=== PATIENT | female | born 1955 | race American Indian/Alaskan Native ===

== ENCOUNTER 2017-09-12 13:37 | Emergency (ER) | payer MEDICAID, OTHER ==
[2017-09-12] MEDS ORDERED: Albuterol/Ipratropium 3.0-0.5 MG/3 ML Neb Soln NEB ONE (13:49)
[2017-09-12] MEDS ORDERED: methylPREDNISolone Sodium Succinate 125 MG/2 ML SDV IVPUSH ONE (13:54)
--- NOTE | 2017-09-12 13:56 | EDM.PDOC ---
ED HPI GENERAL MEDICAL PROBLEM - General Chief Complaint: Respiratory Problem Stated Complaint: [id number] PNEMONIA Time Seen by Provider: 09/12/17 13:50 Source of Information: Reports: Patient History Limitations: Reports: No Limitations - History of Present Illness INITIAL COMMENTS - FREE TEXT/NARRATIVE: 61 yo white female c/o SOB X one week w/ PMHx. A-fib., COPD and continue to smoke cigarettes @ 2 ppd. Denies using oxygen since offered to her one year ago Onset Date: 09/05/17 Onset Time: 12:00 Duration: Week(s):, Getting Worse Location: Reports: Chest, Generalized Improves with: Reports: None Worsens with: Reports: None Context: Reports: Other (PMHx. COPD refused Home Oxygen and Continue to Smoke 2ppd) Associated Symptoms: Reports: Cough, Shortness of Breath - Related Data Allergies Allergy/AdvReac Type Severity Reaction Status Date / Time No Known Allergies Allergy Verified 09/12/17 13:44 Home Meds: Home Meds Albuterol [Proventil Neb Soln] 2.5 mg NEB Q4H PRN #90 ml 01/25/15 [Rx] Diltiazem HCl [Cardizem Cd] 360 mg PO DAILY 09/17/15 [History] Fluticasone/Salmeterol [Advair Hfa 230-21 Mcg Inhaler] 2 inh INH BID 09/17/15 [ History] Metoprolol Tartrate [Lopressor] 100 mg PO BID 09/17/15 [History] Potassium Chloride [Klor-Con M20] 20 meq PO BID 09/17/15 [History] Rivaroxaban [Xarelto] 20 mg PO DAILY 09/17/15 [History] Furosemide [Lasix] 40 mg PO BID #60 tablet 03/02/16 [Rx] Past Medical History HEENT History: Reports: Epistaxis, Other (See Below) Other HEENT History: frequent drainage from ears Cardiovascular History: Reports: Afib, Heart Failure, Hypertension, SOB on Exertion Respiratory History: Reports: Bronchitis, Recurrent, COPD DOCUMENT COORDINATOR History: Reports: Other OB/BYN History: past ; 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 Psychiatric History: Reports: Anxiety - Past Surgical History GI Surgical History: Reports: Other (See Below) Social & Family History - Family History Family Medical History: Unobtainable - Tobacco Use Smoking Status *Q: Current Every Day Smoker Years of Tobacco use: 54 Packs/Tins Daily: 1.5 Used Tobacco, but Quit: No Second Hand Smoke Exposure: Yes - Caffeine Use Caffeine Use: Reports: Coffee - Alcohol Use Days Per Week of Alcohol Use: 4 Number of Drinks Per Day: 8 Total Drinks Per Week: 32 - Recreational Drug Use Recreational Drug Use: No - Living Situation & Occupation Living situation: Reports: Single, with Family Occupation: Unemployed ED ROS GENERAL - Review of Systems Review Of Systems: See Below Constitutional: Reports: No Symptoms HEENT: Reports: No Symptoms Respiratory: Reports: Shortness of Breath, Cough Cardiovascular: Reports: No Symptoms Endocrine: Reports: No Symptoms GI/Abdominal: Reports: No Symptoms : Reports: No Symptoms Musculoskeletal: Reports: No Symptoms Skin: Reports: No Symptoms Neurological: Reports: No Symptoms Psychiatric: Reports: No Symptoms Hematologic/Lymphatic: Reports: No Symptoms Immunologic: Reports: No Symptoms ED EXAM, GENERAL - Physical Exam Exam: See Below Exam Limited By: No Limitations General Appearance: Alert, No Apparent Distress, Obese Eye Exam: Bilateral Eye: EOMI, PERRL Ears: Normal External Exam Nose: Normal Inspection Throat/Mouth: Normal Inspection, Normal Lips Head: Atraumatic Neck: Normal Inspection Respiratory/Chest: No Respiratory Distress, Decreased Breath Sounds, Rhonchi Cardiovascular: Normal Peripheral Pulses, Regular Rate, Rhythm Peripheral Pulses: 2+: Radial (L), Radial (R) GI/Abdominal: Normal Bowel Sounds Back Exam: Normal Inspection Extremities: Normal Inspection, Normal Range of Motion Neurological: Alert, Oriented, CN II-XII Intact, Normal Cognition Psychiatric: Normal Affect, Normal Mood Skin Exam: Warm, Dry, Intact, Pallor Lymphatic: No Adenopathy Course - Vital Signs Text/Narrative:: Labs studies show: DDimer 3170 TROP .03 Pro BNP 1440 WBC 12.8 CXR: Increased Pulmonary Congestion ( CHF) Last Recorded V/S: Last Vital Signs Temp 36.8 C 09/12/17 13:47 Pulse 74 09/12/17 14:19 Resp 20 09/12/17 14:19 BP 125/61 09/12/17 14:19 Pulse Ox 94 L 09/12/17 14:19 - Orders/Labs/Meds Orders: Active Orders 24 hr Category Date Time Status EKG 12 Lead [EKG Documentation Completion] [RC] STAT Care 09/12/17 13:54 Active RT Aerosol Therapy [RC] ASDIRECTED Care 09/12/17 13:49 Active Chest 1V Frontal [CR] Urgent Exams 09/12/17 13:54 Taken Chest w Cont [CT] Urgent Exams 09/12/17 14:43 Ordered INR,PT,PROTHROMBIN TIME [COAG] Stat Lab 09/12/17 15:20 Ordered PTT,PARTIAL THROMBOPLSTIN TIME [COAG] Stat Lab 09/12/17 15:20 Ordered Sodium Chloride 0.9% [Normal Saline] 1,000 ml Med 09/12/17 14:00 Active IV ASDIRECTED Medication Orders Sodium Chloride (Normal Saline) 1,000 mls @ 125 mls/hr IV ASDIRECTED LAURE Last Admin: 09/12/17 14:24 Dose: 125 mls/hr Labs: Laboratory Tests 09/12/17 09/12/17 09/12/17 Range/Units 13:54 14:04 14:04 WBC 12.8 H (5.0-10.0) 10^3/uL RBC 5.17 (4.2-5.4) 10^6/uL Hgb 13.9 D (12.0-16.0) g/dL Hct 44.1 (37.0-47.0) % MCV 85.3 D (80-100) fL MCH 26.9 L (27.0-34.0) pg MCHC 31.5 L (33.0-35.0) g/dL Plt Count 287 (150-450) 10^3/uL Neut % (Auto) 83.3 H (42.2-75.2) % Lymph % (Auto) 8.8 L (20.5-50.1) % [place] % (Auto) 7.1 (2-8) % Eos % (Auto) 0.5 L (1.0-3.0) % Baso % (Auto) 0.3 (0.0-1.0) % Add Manual Diff Yes Neutrophils % (Manual) 76 H (42-75) % Band Neutrophils % 4 % Lymphocytes % (Manual) 13 L (20-50) % Monocytes % (Manual) 3 (2-8) % Eosinophils % (Manual) 1 (1-3) % Myelocytes % 3 D-Dimer, Quantitative (0-400) ng/mL ABG pH 7.33 L (7.35-7.45) ABG pCO2 53 H (35-45) mmHg ABG pO2 59 L (70-100) mmHg ABG HCO3 26.7 H (22-26) mmol/L ABG O2 Saturation 85 L (95-100) % ABG Base Excess 0 ((-2)-(+3)) mmol/L Phil Test change release manager O2 Delivery Device Nasal cannula Oxygen Flow Rate 2 Sodium 139 (135-145) mmol/L Potassium 5.2 H (3.6-5.0) mmol/L Chloride 102 (101-111) mmol/L Carbon Dioxide 25.0 (21.0-31.0) mmol/L Anion Gap 17.2 BUN 16 (7-18) mg/dL Creatinine 0.5 L (0.6-1.3) mg/dL Est Cr Clr Drug Dosing 103.63 mL/min Estimated GFR (MDRD) > 60 BUN/Creatinine Ratio 32.00 Glucose 128 H (74-105) mg/dL Lactic Acid (0.5-2.2) mmol/L Calcium 9.4 (8.4-10.2) mg/dl Total Bilirubin 0.9 (0.2-1.0) mg/dL AST 26 (10-42) IU/L ALT 25 (10-60) IU/L Alkaline Phosphatase 124 H (42-121) IU/L Troponin I 0.03 H* (0.00-0.02) ng/ml B-Natriuretic Peptide 1440 H (0-100) pg/ml Total Protein 6.7 (6.7-8.2) g/dl Albumin 3.3 (3.2-5.5) g/dl Globulin 3.4 Albumin/Globulin Ratio 0.97 09/12/17 09/12/17 Range/Units 14:04 14:04 WBC (5.0-10.0) 10^3/uL RBC (4.2-5.4) 10^6/uL Hgb (12.0-16.0) g/dL Hct (37.0-47.0) % MCV (80-100) fL MCH (27.0-34.0) pg MCHC (33.0-35.0) g/dL Plt Count (150-450) 10^3/uL Neut % (Auto) (42.2-75.2) % Lymph % (Auto) (20.5-50.1) % [place] % (Auto) (2-8) % Eos % (Auto) (1.0-3.0) % Baso % (Auto) (0.0-1.0) % Add Manual Diff Neutrophils % (Manual) (42-75) % Band Neutrophils % % Lymphocytes % (Manual) (20-50) % Monocytes % (Manual) (2-8) % Eosinophils % (Manual) (1-3) % Myelocytes % D-Dimer, Quantitative 3170 H (0-400) ng/mL ABG pH (7.35-7.45) ABG pCO2 (35-45) mmHg ABG pO2 (70-100) mmHg ABG HCO3 (22-26) mmol/L ABG O2 Saturation (95-100) % ABG Base Excess ((-2)-(+3)) mmol/L Phil Test O2 Delivery Device Oxygen Flow Rate Sodium (135-145) mmol/L Potassium (3.6-5.0) mmol/L Chloride (101-111) mmol/L Carbon Dioxide (21.0-31.0) mmol/L Anion Gap BUN (7-18) mg/dL Creatinine (0.6-1.3) mg/dL Est Cr Clr Drug Dosing mL/min Estimated GFR (MDRD) BUN/Creatinine Ratio Glucose (74-105) mg/dL Lactic Acid 1.1 (0.5-2.2) mmol/L Calcium (8.4-10.2) mg/dl Total Bilirubin (0.2-1.0) mg/dL AST (10-42) IU/L ALT (10-60) IU/L Alkaline Phosphatase (42-121) IU/L Troponin I (0.00-0.02) ng/ml B-Natriuretic Peptide (0-100) pg/ml Total Protein (6.7-8.2) g/dl Albumin (3.2-5.5) g/dl Globulin Albumin/Globulin Ratio Meds: Medications Generic Name Dose Route Start Last Admin Trade Name Freq PRN Reason Stop Dose Admin Sodium Chloride 1,000 mls @ 125 mls/hr 09/12/17 14:00 09/12/17 14:24 Normal Saline IV 125 mls/hr ASDIRECTED LAURE Administration Discontinued Medications Generic Name Dose Route Start Last Admin Trade Name Andrew PRN Reason Stop Dose Admin Albuterol/Ipratropium 3 ml 09/12/17 13:49 09/12/17 14:24 Duoneb 3.0-0.5 Mg/3 Ml NEB 09/12/17 13:50 3 ml ONETIME ONE Administration Furosemide 20 mg 09/12/17 15:19 Lasix IVPUSH 09/12/17 15:20 ONETIME ONE Ceftriaxone Sodium 1 gm/ 50 mls @ 100 mls/hr 09/12/17 14:45 09/12/17 14:57 Sodium Chloride IV 09/12/17 15:14 100 mls/hr ONETIME ONE Administration Iopamidol 100 ml 09/12/17 15:01 09/12/17 15:11 Isovue-370 (76%) IVPUSH 09/12/17 15:02 100 ml ONETIME ONE Administration Methylprednisolone Sodium Succinate 125 mg 09/12/17 13:54 09/12/17 14:24 Solu-Medrol IVPUSH 09/12/17 13:55 125 mg ONETIME ONE Administration Departure - Departure Time of Disposition: 15:36 Disposition: DC/Tfer to Acute Hospital 02 Condition: Fair Clinical Impression: COPD with acute exacerbation, Tobacco abuse, Elevated troponin, Elevated d- dimer CHF (congestive heart failure) Qualifiers: Congestive heart failure type: unspecified congestive heart failure type Congestive heart failure chronicity: chronic Qualified Code(s): I50.9 - Heart failure, unspecified - Discharge Information Forms: ED Department Discharge, Interfacility Transfer EMTALA - My Orders Last 24 Hours: My Active Orders 09/12/17 13:49 RT Aerosol Therapy [RC] ASDIRECTED 09/12/17 13:54 EKG 12 Lead [EKG Documentation Completion] [RC] STAT Chest 1V Frontal [CR] Urgent 09/12/17 14:00 Sodium Chloride 0.9% [Normal Saline] 1,000 ml IV ASDIRECTED 09/12/17 14:43 Chest w Cont [CT] Urgent 09/12/17 15:20 INR,PT,PROTHROMBIN TIME [COAG] Stat PTT,PARTIAL THROMBOPLSTIN TIME [COAG] Stat - Assessment/Plan Last 24 Hours: My Active Orders 09/12/17 13:49 RT Aerosol Therapy [RC] ASDIRECTED 09/12/17 13:54 EKG 12 Lead [EKG Documentation Completion] [RC] STAT Chest 1V Frontal [CR] Urgent 09/12/17 14:00 Sodium Chloride 0.9% [Normal Saline] 1,000 ml IV ASDIRECTED 09/12/17 14:43 Chest w Cont [CT] Urgent 09/12/17 15:20 INR,PT,PROTHROMBIN TIME [COAG] Stat PTT,PARTIAL THROMBOPLSTIN TIME [COAG] Stat
[2017-09-12] MEDS ORDERED: Sodium Chloride 0.9% 1,000 ML IV SCH (14:00)
[2017-09-12 14:05] LABS: BASE EXCESS ARTERIAL 0 mmol/L ((-2)-(+3)); BICARBONATE,ARTERIAL 26.7 mmol/L (22-26); O2 DELIVERY DEVICE NASAL CANNULA; O2 SATURATION ARTERIAL 85 % (95-100); PCO2 ARTERIAL 53 mmHg (35-45); PO2 ARTERIAL 59 mmHg (70-100)
[2017-09-12 14:07] LABS: O2 FLOW RATE 2
[2017-09-12 14:19] VITALS: BP 125/61
[2017-09-12] MEDS ORDERED: cefTRIAXone 1 GM in Sodium Chloride 0.9% 50 ML IV ONE (14:45)
[2017-09-12 14:47] LABS: CHLORIDE,CL 102 mmol/L (101-111); SODIUM,NA 139 mmol/L (135-145)
[2017-09-12] MEDS ORDERED: Iopamidol 755 Mg/ML 100 ML Bottle IVPUSH ONE (15:01)
[2017-09-12] MEDS ORDERED: Furosemide 20 MG/2 ML VIAL IVPUSH ONE (15:19)
--- NOTE | 2017-09-16 15:00 | EKG ---
09/12/2017 - NELLA DOBBS - FINDINGS: This 12-lead EKG shows atrial fibrillation with an average ventricular rate of 85 (71 to 101). There is a right bundle-branch block and a left posterior fascicular block. No other comments are made. [facility] /[id number]
== END 2017-09-12 16:05 ==
LOC: DL.ED 13:37
DX: J44.1 Chronic obstructive pulmonary disease with (acute) exacerbation (principal); I50.9 Heart failure, unspecified; F17.210 Nicotine dependence, cigarettes, uncomplicated; R79.89 Other specified abnormal findings of blood chemistry; Z79.899 Other long term (current) drug therapy
CPT/HCPCS: 36415; 36600; 71010; 71260; 80053; 82803; 83605; 83880; 84484; 85025; 85379; 85610; 85730; 93005; 94640; 96361; 96365; 96375; 99285; J0696; J1940; J2930; J7030; J7050; Q9967

== ENCOUNTER → 2019-02-08 | Outpatient (CLI) | payer MEDICARE, OTHER ==
[~2019-02-08] MED LIST: Iopamidol 612 MG/ML 75 ML Bottle IVPUSH ONE
--- NOTE | 2019-02-08 15:33 | CT ---
CLINICAL HISTORY: 63-year-old hypertensive 239 pound diabetic female smoker with stage 1A ovarian carcinoma and "suspicious appearance hilum". (Comparison CT scan chest 12 September 2017). SCAN TECHNIQUE: Volume acquisition of data from the chest (bony thorax, lungs and mediastinum) obtained during the intravenous administration 75 cc nonionic Isovue contrast (3 cc/s via injector) while the patient was lying supine on the Siemens multislice scanner [place], [place]. All data archived in the PACS system for storage, reformatting and study. INTERPRETATION: 1. Evidence gastric bypass surgery (LUQ). Solitary large gallstone (RUQ). 2. Normal cardiac silhouette. No pericardial effusion. No signs of alveolar edema or dependent pleural effusion. NOTE: Asymmetric prominent main pulmonary artery segment (on the right). 3. No parenchymal lung nodule or mass lesion and no new hilar or mediastinal lymphadenopathy when compared to previous CT scan chest, 12 September 2017. Mild peribronchial "cuffing". 4. Solitary 2.0 cm parenchymal cyst, posterior segment, right upper lobe. No other emphysematous changes. 5. Calcifications normal caliber thoracic aorta. 6. Osteopenia, kyphosis and mild hypertrophic spondylosis dorsal spine. No pathologic skeletal lesion, fracture or dislocation. CONCLUSION: Lung cyst, right upper lobe. Cholelithiasis. Asymmetric, anatomically prominent right MPA but no sign of primary or metastatic lung malignancy.
== END ==
LOC: DL.CT 08:58
PROVIDERS: ATTEND Nurse Practitioner Women's Health
DX: R91.8 Other nonspecific abnormal finding of lung field (principal); J98.4 Other disorders of lung; K80.20 Calculus of gallbladder without cholecystitis without obstruction; R93.89 Abnormal findings on diagnostic imaging of other specified body structures; Z85.43 Personal history of malignant neoplasm of ovary
CPT/HCPCS: 71260; Q9967

== ENCOUNTER 2021-04-25 03:14 | Inpatient (IN) | payer MEDICARE, OTHER ==
--- NOTE | 2021-04-25 03:36 | EDM.PDOC ---
ED HPI GENERAL MEDICAL PROBLEM - General Stated Complaint: AMBULANCE Time Seen by Provider: 04/25/21 03:25 Source of Information: Reports: Patient, EMS, RN History Limitations: Reports: No Limitations - History of Present Illness INITIAL COMMENTS - FREE TEXT/NARRATIVE: ED with c/o increasing SOB x 3 days, worse tonight. EMS report initial O2 sats 60% on 3.5L/NC . EMS reported were called to home earlier in day but patient refused to come at that time. Increased swelling. Taking fluid pill only one time daily instead of twice daily as ordered. States she doesn't sleep if takes twice daily. Cough productive yellow griffiths phlegm. Has nebulizer at home but doesn't use. EMS gave Duo neb and sats improved to 97% after and with NRB. Switched to N/C @ 5l 94-97%. Denied chest pain ETOH daily. Smoking daily until 3 days ago, - Related Data Allergies Allergy/AdvReac Type Severity Reaction Status Date / Time No Known Allergies Allergy Verified 04/25/21 06:07 Home Meds: Home Meds Albuterol [Proventil Neb Soln] 2.5 mg NEB Q4H PRN #90 ml 01/25/15 [Rx] Metoprolol Tartrate [Lopressor] 100 mg PO BID 09/17/15 [History] Rivaroxaban [Xarelto] 20 mg PO DAILY 09/17/15 [History] Aspirin [Halfprin] 81 mg PO DAILY 06/04/19 [History] DULoxetine [Cymbalta] 30 mg PO DAILY 06/04/19 [History] Albuterol Sulfate [Proair Hfa] 2 puff IH Q4H PRN 04/25/21 [History] Cholecalciferol (Vitamin D3) [Vitamin D3] 25 mcg PO DAILY 04/25/21 [History] Diltiazem [Dilacor XR] 240 mg PO DAILY 04/25/21 [History] Furosemide 60 mg PO BID 04/25/21 [History] Mometasone Furoate [Asmanex] 1 puff IH BID 04/25/21 [History] Potassium Chloride [Klor-Con M20] 20 meq PO BID 04/25/21 [History] Umeclidinium Brm/Vilanterol Tr [Anoro Ellipta 62.5-25 MCG] 1 puff IH DAILY 04/25/21 [History] metFORMIN [Glucophage] 500 mg PO BIDMEALS 04/25/21 [History] Nystatin [Nystop] 1 gm TOP BID 15 Days #1 bottle 04/26/21 [Rx] Pantoprazole [ProTONIX] 40 mg PO ACBREAKFAST 15 Days #15 tab.cr 04/26/21 [Rx] predniSONE [Prednisone] 10 mg PO DAILY 1 Days #1 tablet 04/26/21 [Rx] Past Medical History HEENT History: Reports: Epistaxis, Other (See Below) Other HEENT History: frequent drainage from ears Cardiovascular History: Reports: Afib, Heart Failure, Hypertension, SOB on Exertion Respiratory History: Reports: Bronchitis, Recurrent, COPD CELLULAR BIOLOGIST History: Reports: Other CELLULAR BIOLOGIST History: past ; 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 Psychiatric History: Reports: Anxiety Endocrine/Metabolic History: Reports: Obesity/BMI 30+ - Past Surgical History GI Surgical History: Reports: Other (See Below) Social & Family History - Family History Family Medical History: Unobtainable - Caffeine Use Caffeine Use: Reports: Coffee - Living Situation & Occupation Living situation: Reports: Single, with Family Occupation: Unemployed ED ROS GENERAL - Review of Systems Review Of Systems: Comprehensive ROS is negative, except as noted in HPI. ED EXAM, GENERAL - Physical Exam Exam: See Below Exam Limited By: No Limitations General Appearance: Alert, Mild Distress, Obese Eye Exam: Bilateral Eye: EOMI Ears: Normal External Exam Nose: Normal Inspection Throat/Mouth: Normal Inspection. No: Normal Teeth Head: Atraumatic, Normocephalic Neck: Normal Inspection Respiratory/Chest: Respiratory Distress, Crackles (bases), Other (2-3 word sentences. ). No: Rhonchi, Wheezing Cardiovascular: Normal Peripheral Pulses, Irregularly Irregular GI/Abdominal: Normal Bowel Sounds Back Exam: Normal Inspection, Full Range of Motion Extremities: Pedal Edema Neurological: Alert, Oriented Psychiatric: Normal Affect, Normal Mood Skin Exam: Warm, Dry, Ecchymosis (purple bruise right lateral breast), Rash (yeast type below bilateral breasts, with odor) #1 Interpretation EKG Date: 04/25/21 Time: 03:24 Rhythm: A-Fib Rate (Beats/Min): 89 QRS: RBBB Comparison: NA - No Prior EKG Course - Vital Signs Last Recorded V/S: Last Vital Signs Temp 97 F 04/26/21 11:58 Pulse 82 04/26/21 11:58 Resp 20 04/26/21 11:58 BP 117/56 L 04/26/21 11:58 Pulse Ox 90 L 04/26/21 11:58 - Orders/Labs/Meds Labs: Laboratory Tests 04/25/21 04/25/21 04/25/21 Range/Units 03:35 03:35 03:35 WBC 6.8 (5.0-10.0) 10^3/uL RBC 4.76 (4.2-5.4) 10^6/uL Hgb 12.4 D (12.0-16.0) g/dL Hct 43.3 (37.0-47.0) % MCV 91.0 D (80-100) fL MCH 26.1 L (27.0-34.0) pg MCHC 28.6 L (33.0-35.0) g/dL Plt Count 204 (150-450) 10^3/uL Neut % (Auto) 77.6 H (42.2-75.2) % Lymph % (Auto) 11.2 L (20.5-50.1) % [place] % (Auto) 8.1 H (2-8) % Eos % (Auto) 2.4 (1.0-3.0) % Baso % (Auto) 0.7 (0.0-1.0) % ABG pH (7.35-7.45) ABG pCO2 (35-45) mmHg ABG pO2 (70-100) mmHg ABG HCO3 (22-26) mmol/L ABG O2 Saturation (95-100) % ABG Base Excess ((-2)-(+3)) mmol/L Phil Test O2 Delivery Device Sodium 140 (136-145) mmol/L Potassium 4.5 (3.5-5.1) mmol/L Chloride 101 (98-107) mmol/L Carbon Dioxide 35 H (21-32) mmol/L Anion Gap 8.5 (7-13) mEq/L BUN 7 (7-18) mg/dL Creatinine 0.56 (0.55-1.02) mg/dL Est Cr Clr Drug Dosing 84.18 mL/min Estimated GFR (MDRD) > 60 BUN/Creatinine Ratio 12.5 (No establ ref range) Glucose 129 H (70-99) mg/dL Lactic Acid 0.8 (0.4-2.0) mmol/L Calcium 9.2 (8.5-10.1) mg/dL Magnesium 1.8 (1.8-2.4) mg/dL Total Bilirubin 0.7 (0.2-1.0) mg/dL AST 15 (15-37) U/L ALT 14 (14-59) U/L Alkaline Phosphatase 74 (46-116) U/L Troponin I High Sens 5 (<=51) pg/mL B-Natriuretic Peptide 570 H (0-100) pg/ml Total Protein 7.2 (6.4-8.2) g/dL Albumin 3.3 L (3.4-5.0) g/dL Globulin 3.9 Albumin/Globulin Ratio 0.85 Ethyl Alcohol (0) mg/dL SARS-CoV-2 RNA (ZORA) (NEGATIVE) 04/25/21 04/25/21 04/25/21 Range/Units 03:35 03:55 04:35 WBC (5.0-10.0) 10^3/uL RBC (4.2-5.4) 10^6/uL Hgb (12.0-16.0) g/dL Hct (37.0-47.0) % MCV (80-100) fL MCH (27.0-34.0) pg MCHC (33.0-35.0) g/dL Plt Count (150-450) 10^3/uL Neut % (Auto) (42.2-75.2) % Lymph % (Auto) (20.5-50.1) % [place]ts % (Auto) (2-8) % Eos % (Auto) (1.0-3.0) % Baso % (Auto) (0.0-1.0) % ABG pH 7.28 L (7.35-7.45) ABG pCO2 86 H* (35-45) mmHg ABG pO2 57 L (70-100) mmHg ABG HCO3 38.8 H (22-26) mmol/L ABG O2 Saturation 88 L (95-100) % ABG Base Excess 9 H ((-2)-(+3)) mmol/L Phil Test Performed O2 Delivery Device Non rebr mask Sodium (136-145) mmol/L Potassium (3.5-5.1) mmol/L Chloride (98-107) mmol/L Carbon Dioxide (21-32) mmol/L Anion Gap (7-13) mEq/L BUN (7-18) mg/dL Creatinine (0.55-1.02) mg/dL Est Cr Clr Drug Dosing mL/min Estimated GFR (MDRD) BUN/Creatinine Ratio (No establ ref range) Glucose (70-99) mg/dL Lactic Acid (0.4-2.0) mmol/L Calcium (8.5-10.1) mg/dL Magnesium (1.8-2.4) mg/dL Total Bilirubin (0.2-1.0) mg/dL AST (15-37) U/L ALT (14-59) U/L Alkaline Phosphatase (46-116) U/L Troponin I High Sens (<=51) pg/mL B-Natriuretic Peptide (0-100) pg/ml Total Protein (6.4-8.2) g/dL Albumin (3.4-5.0) g/dL Globulin Albumin/Globulin Ratio Ethyl Alcohol < 3 (0) mg/dL SARS-CoV-2 RNA (ZORA) Negative (NEGATIVE) Meds: Medications Discontinued Medications Generic Name Dose Route Start Last Admin Trade Name Freq PRN Reason Stop Dose Admin Acetaminophen 650 mg 04/25/21 06:46 Acetaminophen 325 Mg Tab PO Q4H PRN Pain (Mild 1-3)/fever Albuterol/Ipratropium 3 ml 04/25/21 07:00 04/26/21 11:54 Albuterol/Ipratropium 3.0-0.5 Mg/3 Ml Neb Soln NEB Not Given Q4HRRT LAURE Aspirin 81 mg 04/25/21 09:00 04/26/21 08:59 Aspirin 81 Mg Tab.Ec PO 81 mg DAILY LAURE Administration Dextrose/Water 50 ml 04/25/21 06:50 50% Dextrose In Water 50 Ml Syringe IVPUSH Q15M PRN Hypoglycemia Diltiazem HCl 240 mg 04/25/21 09:00 04/26/21 09:00 Diltiazem 240 Mg Cap.Er PO 240 mg DAILY LAURE Administration Duloxetine HCl 30 mg 04/25/21 09:00 04/26/21 09:00 Duloxetine 30 Mg Cap PO 30 mg DAILY LAURE Administration Furosemide 40 mg 04/25/21 03:40 04/25/21 03:50 Furosemide 40 Mg/4 Ml Vial IVPUSH 04/25/21 03:41 40 mg ONETIME ONE Administration Furosemide 20 mg 04/25/21 07:00 04/26/21 06:12 Furosemide 20 Mg/2 Ml Vial IVPUSH 20 mg Q8H LAURE Administration Glucagon 1 mg 04/25/21 06:50 Glucagon,Human Recombinant 1 Mg Vial IM Q15M PRN Hypoglycemia Ceftriaxone Sodium 1 gm/ 50 mls @ 100 mls/hr 04/25/21 04:37 04/25/21 04:44 Sodium Chloride IV 04/25/21 05:06 100 mls/hr ONETIME ONE Administration Insulin Human Lispro 0 unit 04/25/21 08:00 04/26/21 10:04 Insulin Lispro 100 Units/Ml 3 Ml Vial SUBCUT 1 units WITHMEALSANDBED LAURE Administration Protocol Lorazepam 0 mg 04/25/21 06:48 Lorazepam 2 Mg/Ml Sdv IV TITRATE PRN alcohol withdrawal Protocol Methylprednisolone Sodium Succinate 125 mg 04/25/21 03:40 04/25/21 03:50 Methylprednisolone Sodium Succinate 125 Mg/2 Ml Sdv IVPUSH 04/25/21 03:41 125 mg ONETIME ONE Administration Methylprednisolone Sodium Succinate 60 mg 04/25/21 07:00 04/26/21 06:08 Methylprednisolone Sodium Succinate 125 Mg/2 Ml Sdv IVPUSH 60 mg Q8H LAURE Administration Metoprolol Tartrate 100 mg 04/25/21 09:00 04/26/21 09:01 Metoprolol Tartrate 50 Mg Tab PO 100 mg BID LAURE Administration Nystatin 1 gm 04/25/21 10:00 04/26/21 09:01 Nystatin Topical Powder 30 Gm Bottle TOP 1 applic BID LAURE Administration Ondansetron HCl 4 mg 04/25/21 06:46 Ondansetron 4 Mg/2 Ml Sdv IVPUSH Q4H PRN Nausea/Vomiting Pantoprazole Sodium 40 mg 04/25/21 07:00 04/26/21 05:14 Pantoprazole 40 Mg Tab.Cr PO 40 mg ACBREAKFAST LAURE Administration Rivaroxaban 20 mg 04/25/21 09:00 04/26/21 08:59 Rivaroxaban 10 Mg Tab PO 20 mg DAILY LAURE Administration Sodium Chloride 10 ml 04/25/21 06:46 04/26/21 06:08 Sodium Chloride 0.9% 10 Ml Syringe FLUSH 10 ml ASDIRECTED PRN Administration Keep Vein Open - Re-Assessments/Exams Free Text/Narrative Re-Assessment/Exam: 04/25/21 04:31 Sats 92-96 at rest 5L transient decrease mid 70's with exertion to commode. 04/25/21 05:30 Family here, report patient drinks at least 18 beers/day, has not had any past 3 days due to feeling poorly. family deniy any withdrawal type symptoms . Stated some confusion at home today when up to BR, TC Dr Alfred Admit Acute CHI for hypoxia, CHF COPD chronic A-fib, rash Departure - Departure Time of Disposition: 05:30 Disposition: Admitted As Inpatient 64 Condition: Fair Clinical Impression: Hypoxia, COPD with exacerbation, Tobacco abuse CHF (congestive heart failure) Qualifiers: Qualified Code(s): I50.9 - Heart failure, unspecified - Discharge Information *PRESCRIPTION DRUG MONITORING PROGRAM REVIEWED*: No *COPY OF PRESCRIPTION DRUG MONITORING REPORT IN PATIENT MARISA: No
[2021-04-25] MEDS ORDERED: methylPREDNISolone Sodium Succinate 125 MG/2 ML SDV IVPUSH ONE (03:40)
[2021-04-25] MEDS ORDERED: Furosemide 40 MG/4 ML VIAL IVPUSH ONE (03:40)
[2021-04-25 03:58] LABS: O2 DELIVERY DEVICE NON REBR MASK; PCO2 ARTERIAL 86 mmHg (35-45); PO2 ARTERIAL 57 mmHg (70-100)
[2021-04-25 03:59] LABS: ALLEN TEST PERFORMED; BASE EXCESS ARTERIAL 9 mmol/L ((-2)-(+3)); BICARBONATE,ARTERIAL 38.8 mmol/L (22-26); O2 SATURATION ARTERIAL 88 % (95-100)
[2021-04-25 04:09] LABS: ANION GAP 8.5 mEq/L (7-13); CHLORIDE,CL 101 mmol/L (98-107); SODIUM,NA 140 mmol/L (136-145)
[2021-04-25] MEDS ORDERED: cefTRIAXone 1 GM in Sodium Chloride 0.9% 50 ML IV ONE (04:37)
--- NOTE | 2021-04-25 05:49 | CR ---
PROCEDURE INFORMATION: Exam: XR Chest Exam date and time: 04/25/2021 3:39 AM Age: 65 years old Clinical indication: Other: Hypoxia TECHNIQUE: Imaging protocol: XR of the chest. Views: 1 view. COMPARISON: CT Chest wo Cont 02/28/2021 2:04 PM FINDINGS: Lungs: There is indistinctness of the pulmonary vasculature and increased interstitial opacities present bilaterally, findings suggesting pulmonary edema. Superimposed interstitial pneumonitis cannot be entirely excluded. Pleural spaces: Unremarkable. No pleural effusion. No pneumothorax. Heart/Mediastinum: Unremarkable. No cardiomegaly. Bones/joints: Unremarkable. IMPRESSION: Indistinct pulmonary vasculature and increased interstitial opacities present within the hemithoraces bilaterally, findings there may represent pulmonary edema. Superimposed interstitial pneumonitis cannot be entirely excluded.
[2021-04-25] MEDS ORDERED: Acetaminophen 325 MG Tab PO PRN (06:46)
[2021-04-25] MEDS ORDERED: Ondansetron 4 MG/2 ML SDV IVPUSH PRN (06:46)
[2021-04-25] MEDS ORDERED: LORazepam 2 MG/ML SDV IV PRN (06:48)
[2021-04-25] MEDS ORDERED: Glucagon,Human Recombinant 1 MG Vial IM PRN (06:50)
[2021-04-25] MEDS ORDERED: 50% Dextrose in Water 50 ML Syringe IVPUSH PRN (06:50)
--- NOTE | 2021-04-25 06:56 | PCM.HP ---
H&P History of Present Illness - General Date of Service: 04/25/21 Admit Problem/Dx: Admission Diagnosis/Problem Admission Diagnosis/Problem Hypoxia - History of Present Illness Initial Comments - Free Text/Narative: The patient is a six 5-year-old female who presents to complain of shortness of breath. She states she started feeling unwell approximately 4 days prior to admission. At that point time she developed dyspnea and anorexia. Since that time she is experience fever, rigors, cough productive of clear sputum. She denies nausea, vomiting, wheeze, abdominal pain, diarrhea, myalgia, chest pain, peripheral edema, dysgeusia, anosmia. Patient has known history of COPD for which she is O2 dependent 3 L and known history of CHF. She presents for further evaluation - Related Data Allergies/Adverse Reactions: Allergies Allergy/AdvReac Type Severity Reaction Status Date / Time No Known Allergies Allergy Verified 04/25/21 06:07 Home Medications: Home Meds Albuterol [Proventil Neb Soln] 2.5 mg NEB Q4H PRN #90 ml 01/25/15 [Rx] Metoprolol Tartrate [Lopressor] 100 mg PO BID 09/17/15 [History] Rivaroxaban [Xarelto] 20 mg PO DAILY 09/17/15 [History] Aspirin [Halfprin] 81 mg PO DAILY 06/04/19 [History] DULoxetine [Cymbalta] 30 mg PO DAILY 06/04/19 [History] Furosemide [Lasix] 60 mg PO BID 06/04/19 [History] metFORMIN [Glucophage XR] 500 mg PO BIDMEALS 06/04/19 [History] Diltiazem [Diltiazem XR] 240 mg PO DAILY 04/25/21 [History] Umeclidinium Brm/Vilanterol Tr [Anoro Ellipta 62.5-25 MCG] 1 puff IH DAILY 04/25/21 [History] Past Medical History HEENT History: Reports: Epistaxis, Other (See Below) Other HEENT History: frequent drainage from ears Cardiovascular History: Reports: Afib, Heart Failure, Hypertension, SOB on Exer tion Respiratory History: Reports: Bronchitis, Recurrent, COPD SPEECH SCIENTIST History: Reports: Other OB/BYN History: past ; 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 Psychiatric History: Reports: Anxiety Endocrine/Metabolic History: Reports: Obesity/BMI 30+ - Infectious Disease History Infectious Disease History: Reports: None - Past Surgical History GI Surgical History: Reports: Other (See Below) Social & Family History - Family History Family Medical History: Unobtainable - Tobacco Use Tobacco Use Status *Q: Current Every Day Tobacco User Years of Tobacco use: 55 Packs/Tins Daily: 2 - Caffeine Use Caffeine Use: Reports: Coffee - Alcohol Use Days Per Week of Alcohol Use: 7 Number of Drinks Per Day: 12 Total Drinks Per Week: 84 - Recreational Drug Use Recreational Drug Use: No - Living Situation & Occupation Living situation: Reports: Single, with Family Occupation: Unemployed H&P Review of Systems - Review of Systems: Review Of Systems: See Below General: Reports: No Symptoms HEENT: Reports: No Symptoms Pulmonary: Reports: Shortness of Breath Cardiovascular: Reports: No Symptoms Gastrointestinal: Reports: No Symptoms Genitourinary: Reports: No Symptoms Musculoskeletal: Reports: No Symptoms Skin: Reports: No Symptoms Psychiatric: Reports: No Symptoms Neurological: Reports: No Symptoms Hematologic/Lymphatic: Reports: No Symptoms Immunologic: Reports: No Symptoms Exam - Exam Exam: See Below - Vital Signs Vital Signs: Last Vital Signs Temp 98.5 F 04/25/21 05:42 Pulse 89 04/25/21 05:42 Resp 20 04/25/21 05:42 BP 153/82 H 04/25/21 05:42 Pulse Ox 91 L 04/25/21 05:42 Weight: 250 lb 6.4 oz - Exam General: Alert, Oriented, 4 HEENT: PERRLA, Hearing Intact, Mucosa Moist & Ridge, Nares Patent, Normal Nasal Septum, Posterior Pharynx Clear, Conjunctiva Clear, EOMI, EACs Clear, TMs Clear Neck: Supple, Trachea Midline, 2 Lungs: Decreased Breath Sounds, Wheezing Cardiovascular: Regular Rate, Regular Rhythm GI/Abdominal Exam: Normal Bowel Sounds, Soft, Non-Tender, No Organomegaly, No Distention, No Abnormal Bruit, No Mass, Pelvis Stable Back Exam: Normal Inspection, Full Range of Motion, NT Extremities: Normal Inspection, Normal Range of Motion, Non-Tender, No Pedal Edema, Normal Capillary Refill Peripheral Pulses: 2+: Carotid (L), Carotid (R), Brachial (L), Brachial (R), Radial (L), Radial (R), Femoral (L), Femoral (R), Popliteal (L), Popliteal (R), Posterior Tibial (L), Posterior Tibial (R), Dorsalis Pedis (L), Dorsalis Pedis ( R) Skin: Warm, Dry, Intact Neurological: Cranial Nerves Intact, Reflexes Equal Bilateral Neuro Extensive - Mental Status: Alert, Oriented x3, Normal Mood/Affect, Normal Cognition Neuro Extensive - Motor, Sensory, Reflexes: CN II-XII Intact, Normal Gait, Normal Reflexes DTR: 2+: Bicep (L), Bicep (R), Tricep (L), Tricep (R), Patella (L), Patella (R), Achilles (L), Achilles (R) Psychiatric: Alert, Normal Affect, Normal Mood - Patient Data Lab Results Last 24 hrs: Laboratory Results - last 24 hr 04/25/21 04/25/21 04/25/21 Range/Units 03:35 03:35 03:35 WBC 6.8 (5.0-10.0) 10^3/uL RBC 4.76 (4.2-5.4) 10^6/uL Hgb 12.4 D (12.0-16.0) g/dL Hct 43.3 (37.0-47.0) % MCV 91.0 D (80-100) fL MCH 26.1 L (27.0-34.0) pg MCHC 28.6 L (33.0-35.0) g/dL Plt Count 204 (150-450) 10^3/uL Neut % (Auto) 77.6 H (42.2-75.2) % Lymph % (Auto) 11.2 L (20.5-50.1) % [place] % (Auto) 8.1 H (2-8) % Eos % (Auto) 2.4 (1.0-3.0) % Baso % (Auto) 0.7 (0.0-1.0) % ABG pH (7.35-7.45) ABG pCO2 (35-45) mmHg ABG pO2 (70-100) mmHg ABG HCO3 (22-26) mmol/L ABG O2 Saturation (95-100) % ABG Base Excess ((-2)-(+3)) mmol/L Phil Test O2 Delivery Device Sodium 140 (136-145) mmol/L Potassium 4.5 (3.5-5.1) mmol/L Chloride 101 (98-107) mmol/L Carbon Dioxide 35 H (21-32) mmol/L Anion Gap 8.5 (7-13) mEq/L BUN 7 (7-18) mg/dL Creatinine 0.56 (0.55-1.02) mg/dL Est Cr Clr Drug Dosing 84.18 mL/min Estimated GFR (MDRD) > 60 BUN/Creatinine Ratio 12.5 (No establ ref range) Glucose 129 H (70-99) mg/dL Lactic Acid 0.8 (0.4-2.0) mmol/L Calcium 9.2 (8.5-10.1) mg/dL Magnesium 1.8 (1.8-2.4) mg/dL Total Bilirubin 0.7 (0.2-1.0) mg/dL AST 15 (15-37) U/L ALT 14 (14-59) U/L Alkaline Phosphatase 74 (46-116) U/L Troponin I High Sens 5 (<=51) pg/mL B-Natriuretic Peptide 570 H (0-100) pg/ml Total Protein 7.2 (6.4-8.2) g/dL Albumin 3.3 L (3.4-5.0) g/dL Globulin 3.9 Albumin/Globulin Ratio 0.85 Ethyl Alcohol (0) mg/dL SARS-CoV-2 RNA ([facility]) (NEGATIVE) 04/25/21 04/25/21 04/25/21 Range/Units 03:35 03:55 04:35 WBC (5.0-10.0) 10^3/uL RBC (4.2-5.4) 10^6/uL Hgb (12.0-16.0) g/dL Hct (37.0-47.0) % MCV (80-100) fL MCH (27.0-34.0) pg MCHC (33.0-35.0) g/dL Plt Count (150-450) 10^3/uL Neut % (Auto) (42.2-75.2) % Lymph % (Auto) (20.5-50.1) % Living[place] % (Auto) (2-8) % Eos % (Auto) (1.0-3.0) % Baso % (Auto) (0.0-1.0) % ABG pH 7.28 L (7.35-7.45) ABG pCO2 86 H* (35-45) mmHg ABG pO2 57 L (70-100) mmHg ABG HCO3 38.8 H (22-26) mmol/L ABG O2 Saturation 88 L (95-100) % ABG Base Excess 9 H ((-2)-(+3)) mmol/L Phil Test Performed O2 Delivery Device Non rebr mask Sodium (136-145) mmol/L Potassium (3.5-5.1) mmol/L Chloride (98-107) mmol/L Carbon Dioxide (21-32) mmol/L Anion Gap (7-13) mEq/L BUN (7-18) mg/dL Creatinine (0.55-1.02) mg/dL Est Cr Clr Drug Dosing mL/min Estimated GFR (MDRD) BUN/Creatinine Ratio (No establ ref range) Glucose (70-99) mg/dL Lactic Acid (0.4-2.0) mmol/L Calcium (8.5-10.1) mg/dL Magnesium (1.8-2.4) mg/dL Total Bilirubin (0.2-1.0) mg/dL AST (15-37) U/L ALT (14-59) U/L Alkaline Phosphatase (46-116) U/L Troponin I High Sens (<=51) pg/mL B-Natriuretic Peptide (0-100) pg/ml Total Protein (6.4-8.2) g/dL Albumin (3.4-5.0) g/dL Globulin Albumin/Globulin Ratio Ethyl Alcohol < 3 (0) mg/dL SARS-CoV-2 RNA ([facility]) Negative (NEGATIVE) Result Diagrams: 04/25/21 03:35 04/25/21 03:35 Jay Results Last 24 hrs: Microbiology 04/25/21 03:35 Anaerobic Blood Culture - Final Blood - Arm, Right Problem List Initiated/Reviewed/Updated: Yes Orders Last 24hrs: Active Orders 24 hr Category Date Time Status Admission Diagnosis [ADT] Stat ADT 04/25/21 05:22 Ordered Admission Status [Patient Status] [ADT] Stat ADT 04/25/21 05:22 Active Aspiration Precautions [RC] ASDIRECTED Care 04/25/21 06:48 Ordered Blood Glucose Check, Bedside [RC] WITHMEALSANDBED Care 04/25/21 06:46 Ordered Cardiac Monitoring [RC] . DIRECTED Care 04/25/21 05:22 Active Cardiac Monitoring [RC] CONTINUOUS Care 04/25/21 06:47 Ordered Curiel Catheter Insertion [Insert Urinary Catheter] [OM. Care 04/25/21 05:00 Ordered PC] Q24H Height and Weight [RC] DAILY Care 04/25/21 06:46 Ordered Intake and Output [RC] QSHIFT Care 04/25/21 06:46 Ordered Notify Provider [RC] PRN Care 04/25/21 06:48 Ordered Oxygen Therapy [RC] PRN Care 04/25/21 06:46 Ordered Peripheral IV Care [RC] . DIRECTED Care 04/25/21 06:47 Ordered RT Aerosol Therapy [RC] ASDIRECTED Care 04/25/21 06:50 Ordered Up With Assistance [RC] ASDIRECTED Care 04/25/21 06:46 Ordered Urinary Catheter Assessment [RC] 08,20 Care 04/25/21 05:00 Active Vital Signs [RC] Q4H Care 04/25/21 06:46 Ordered Consistent Carbohydrate Diet [DIET] Diet 04/25/21 Breakfast Ordered Echo Comp wo Cont [US] Routine Exams 04/25/21 06:49 Ordered BASIC METABOLIC PANEL,BMP [CHEM] Routine Lab 04/26/21 05:00 Ordered CULTURE BLOOD [BC] Stat Lab 04/25/21 03:35 Results TROPONIN I HIGH SENSITIVITY [CHEM] Q6H Lab 04/25/21 10:00 Ordered Acetaminophen [TylenoL] Med 04/25/21 06:46 Ordered 650 mg PO Q4H PRN Albuterol/Ipratropium [DuoNeb 3.0-0.5 MG/3 ML] Med 04/25/21 07:00 Ordered 3 ml NEB Q4HRRT Aspirin [Halfprin] Med 04/25/21 09:00 Active 81 mg PO DAILY DULoxetine [Cymbalta] Med 04/25/21 09:00 Active 30 mg PO DAILY Dextrose 50% in Water Med 04/25/21 06:50 Ordered 50 ml IVPUSH Q15M PRN Diltiazem [Dilacor XR] Med 04/25/21 09:00 Active 240 mg PO DAILY Furosemide [Lasix] Med 04/25/21 07:00 Ordered 20 mg IVPUSH Q8H Glucagon,Human Recombinant [GlucaGen] Med 04/25/21 06:50 Ordered 1 mg IM Q15M PRN Insulin Lispro [HumaLOG] Med 04/25/21 08:00 Ordered See Protocol SUBCUT WITHMEALSANDBED LORazepam [Ativan] Med 04/25/21 06:48 Ordered See Protocol IV TITRATE PRN Metoprolol Tartrate [Lopressor] Med 04/25/21 09:00 Active 100 mg PO BID Ondansetron [Zofran] Med 04/25/21 06:46 Ordered 4 mg IVPUSH Q4H PRN Pantoprazole [ProTONIX] Med 04/26/21 06:00 Ordered 40 mg PO ACBREAKFAST Rivaroxaban [Xarelto] Med 04/25/21 09:00 Active 20 mg PO DAILY Sodium Chloride 0.9% [Saline Flush] Med 04/25/21 06:46 Ordered 10 ml FLUSH ASDIRECTED PRN metFORMIN [Glucophage XR] Med 04/25/21 08:00 Pending 500 mg PO BIDMEALS methylPREDNISolone Sod Succ [Solu-MEDROL] Med 04/25/21 07:00 Ordered 60 mg IVPUSH Q8H Peripheral IV Insertion Adult [OM.PC] Routine Oth 04/25/21 06:46 Ordered Saline Lock Insert [OM.PC] Routine Oth 04/25/21 06:46 Ordered Seizure Precautions [OM.PC] Routine Oth 04/25/21 06:48 Ordered Seizure Precautions [OM.PC] Stat Oth 04/25/21 06:48 Ordered Resuscitation Status Routine Resus Stat 04/25/21 06:46 Ordered Medication Orders Acetaminophen (Acetaminophen 325 Mg Tab) 650 mg PO Q4H PRN PRN Reason: Pain (Mild 1-3)/fever Aspirin (Aspirin 81 Mg Tab.Ec) 81 mg PO DAILY LAURE Diltiazem HCl (Diltiazem 240 Mg Cap.Er) 240 mg PO DAILY LAURE Duloxetine HCl (Duloxetine 30 Mg Cap) 30 mg PO DAILY LAURE Furosemide (Furosemide 20 Mg/2 Ml Vial) 20 mg IVPUSH Q8H LAURE Lorazepam (Lorazepam 2 Mg/Ml Sdv) 0 mg IV TITRATE PRN; Protocol PRN Reason: alcohol withdrawal Metoprolol Tartrate (Metoprolol Tartrate 50 Mg Tab) 100 mg PO BID LAURE Non-Formulary Medication (Metformin [Glucophage Xr]) 500 mg PO BIDMEALS LAURE Ondansetron HCl (Ondansetron 4 Mg/2 Ml Sdv) 4 mg IVPUSH Q4H PRN PRN Reason: Nausea/Vomiting Rivaroxaban (Rivaroxaban 10 Mg Tab) 20 mg PO DAILY LAURE Sodium Chloride (Sodium Chloride 0.9% 10 Ml Syringe) 10 ml FLUSH ASDIRECTED PRN PRN Reason: Keep Vein Open Assessment/Plan Comment:: Surgical History: Gastric bypass, nephrectomyside unknown by the patient Family History: Cancer, stroke, diabetes, hypertension, hyperlipidemia Social History: Tobacco: Active smoker Alcohol: The patient drinks 18 beers daily Caffeine: Coffee Drugs: Presently none. Past use: Methamphetamine, marijuana Allergies: No known drug allergies Code Status: DNR, DNI Assessment / Plan: Dyspnea secondary to CHF exacerbation and COPD exacerbation COPD, O2 dependent at 3 L. Solu-Medrol 6 mg IV every 8 hours plus DuoNeb every 4 hours Documented history of CHF however echocardiogram from September 16, 2020 overall is unremarkable. Will monitor patient telemetry and check saccadic enzymes. Strict I/O. Daily weight. Echocardiogram pending. Toprol-XL 100 mg p.o. twice daily plus Lasix 20 mg IV every 8 hours History of 1.5 cm right upper lobe pulmonary cyst. Outpatient monitoring with her primary care physician or with her provider Alcohol use. Seizure precautions. IV as needed Ativan per [facility] protocol Anxiety Atrial fibrillation. Telemetry monitoring. Delacort XR 240 mg p.o. daily plus metoprolol 100 mg p.o. twice daily plus Xarelto 20 mg p.o. daily Depression. Cymbalta 30 mg p.o. daily Coronary artery disease. Aspirin 81 mg p.o. daily plus metoprolol XL 100 mg p.o. twice daily Diabetes. Will check fingerstick glucose before every meal and at bedtime and provide some sliding scale plus Metformin 500 mg p.o. twice daily Hypertension. Delacort XR 240 mg p.o. daily plus metoprolol XL 100 mg p.o. twice daily plus Lasix 20 mg IV every 8 hours Obesity. Patient be counseled regarding lifestyle modification Smoker. Patient will be counseled regarding smoking cessation History of ovarian cancer, status post nephrectomyside unknown by the patient. The patient did not require chemotherapy or radiation therapy. She states that she is in remission and is not required to monitor this medical condition by Osteoporosis History of cholelithiasis History of vitamin D deficiency Constipation Insomnia Gout GI prophylaxis. Protonix 40 mg p.o. daily DVT prophylaxis. Xarelto 20 mg p.o. daily Disposition: Anticipate discharge within 48 hours END OF DOCTOR EMAMIS HISTORY AND PHYSICAL / CONSULTATION NOTE
[2021-04-25] MEDS: Albuterol/Ipratropium 3.0-0.5 MG/3 ML Neb Soln NEB SCH ×5 (07:45→22:54)
[2021-04-25] MEDS ORDERED: Non-Formulary Medication 1 Each (Metformin [Glucophage Xr] 500 MG Tab.Er) PO SCH (08:00)
[2021-04-25] MEDS: Furosemide 20 MG/2 ML VIAL IVPUSH SCH ×3 (08:23→22:55)
[2021-04-25] MEDS: methylPREDNISolone Sodium Succinate 125 MG/2 ML SDV IVPUSH SCH ×3 (08:26→23:00)
[2021-04-25] MEDS: Rivaroxaban 10 MG Tab PO SCH (08:30)
[2021-04-25] MEDS: DULoxetine 30 MG Cap PO SCH (08:30)
[2021-04-25] MEDS: Metoprolol Tartrate 50 MG Tab PO SCH ×2 (08:30→21:22)
[2021-04-25] MEDS: Diltiazem 240 MG Cap.ER PO SCH (08:30)
[2021-04-25] MEDS: Aspirin 81 MG Tab.EC PO SCH (08:30)
[2021-04-25] MEDS: Pantoprazole 40 MG Tab.CR PO SCH (08:31)
[2021-04-25] MEDS: Insulin Lispro 100 Units/ML 3 ML Vial SUBCUT SCH ×4 (08:38→21:32)
[2021-04-25] MEDS: Nystatin Topical Powder 30 GM Bottle TOP SCH ×2 (10:24→21:24)
[2021-04-25] MEDS: Sodium Chloride 0.9% 10 ML Syringe FLUSH PRN (22:55)
[2021-04-26] MEDS: Albuterol/Ipratropium 3.0-0.5 MG/3 ML Neb Soln NEB SCH ×3 (03:08→11:54)
[2021-04-26] MEDS: Pantoprazole 40 MG Tab.CR PO SCH (05:14)
[2021-04-26] MEDS: methylPREDNISolone Sodium Succinate 125 MG/2 ML SDV IVPUSH SCH (06:08)
[2021-04-26] MEDS: Sodium Chloride 0.9% 10 ML Syringe FLUSH PRN (06:08)
[2021-04-26] MEDS: Furosemide 20 MG/2 ML VIAL IVPUSH SCH (06:12)
[2021-04-26 06:19] LABS: ANION GAP 8.5 mEq/L (7-13); CHLORIDE,CL 95 mmol/L (98-107); SODIUM,NA 144 mmol/L (136-145)
--- NOTE | 2021-04-26 07:23 | PCM.PN ---
- General Info Date of Service: 04/26/21 Subjective Update: The patient indicates that she feels as though she is back at her baseline respiratory status. Overnight she denies fever, rigors, nausea, vomiting, cough, wheeze, abdominal pain, chest pain, or any other constitutional complaints. I explained to the patient her current medical condition and plan of care and I have answered all of her questions - Review of Systems General: Reports: No Symptoms HEENT: Reports: No Symptoms Pulmonary: Reports: No Symptoms Cardiovascular: Reports: No Symptoms Gastrointestinal: Reports: No Symptoms Genitourinary: Reports: No Symptoms Musculoskeletal: Reports: No Symptoms Skin: Reports: No Symptoms Neurological: Reports: No Symptoms Psychiatric: Reports: No Symptoms - Patient Data Vitals - Most Recent: Last Vital Signs Temp 96.5 F L 04/26/21 05:00 Pulse 77 04/26/21 05:00 Resp 20 04/26/21 05:00 BP 147/75 H 04/26/21 05:00 Pulse Ox 91 L 04/26/21 05:00 Weight - Most Recent: 243 lb 9.6 oz I&O - Last 24 Hours: Intake & Output 04/25/21 04/26/21 04/26/21 22:59 06:59 14:59 Intake Total 225 400 Output Total 1400 875 Balance -1175 -475 Lab Results Last 24 Hours: Laboratory Results - last 24 hr 04/25/21 04/25/21 04/25/21 Range/Units 08:02 10:01 11:31 Sodium (136-145) mmol/L Potassium (3.5-5.1) mmol/L Chloride (98-107) mmol/L Carbon Dioxide (21-32) mmol/L Anion Gap (7-13) mEq/L BUN (7-18) mg/dL Creatinine (0.55-1.02) mg/dL Est Cr Clr Drug Dosing mL/min Estimated GFR (MDRD) Glucose (70-99) mg/dL POC Glucose 133 H 201 H (70-99) mg/dL Calcium (8.5-10.1) mg/dL Troponin I High Sens 5 (<=51) pg/mL 04/25/21 04/25/21 04/26/21 Range/Units 16:47 20:49 05:40 Sodium 144 (136-145) mmol/L Potassium 3.5 (3.5-5.1) mmol/L Chloride 95 L (98-107) mmol/L Carbon Dioxide 44 H* (21-32) mmol/L Anion Gap 8.5 (7-13) mEq/L BUN 15 (7-18) mg/dL Creatinine 0.72 (0.55-1.02) mg/dL Est Cr Clr Drug Dosing 65.47 mL/min Estimated GFR (MDRD) > 60 Glucose 164 H (70-99) mg/dL POC Glucose 176 H 173 H (70-99) mg/dL Calcium 9.2 (8.5-10.1) mg/dL Troponin I High Sens (<=51) pg/mL Jay Results Last 24 Hours: Microbiology 04/25/21 03:35 Aerobic Blood Culture - Preliminary Blood - Arm, Right NO GROWTH AFTER 1 DAY Anaerobic Blood Culture - Final Med Orders - Current: Current Medications Acetaminophen (Acetaminophen 325 Mg Tab) 650 mg PO Q4H PRN PRN Reason: Pain (Mild 1-3)/fever Albuterol/Ipratropium (Albuterol/Ipratropium 3.0-0.5 Mg/3 Ml Neb Soln) 3 ml NEB Q4HRRT [facility] Last Admin: 04/26/21 03:08 Dose: Not Given Documented by: Aspirin (Aspirin 81 Mg Tab.Ec) 81 mg PO DAILY [facility] Last Admin: 04/25/21 08:30 Dose: 81 mg Documented by: Dextrose/Water (50% Dextrose In Water 50 Ml Syringe) 50 ml IVPUSH Q15M PRN PRN Reason: Hypoglycemia Diltiazem HCl (Diltiazem 240 Mg Cap.Er) 240 mg PO DAILY [facility] Last Admin: 04/25/21 08:30 Dose: 240 mg Documented by: Duloxetine HCl (Duloxetine 30 Mg Cap) 30 mg PO DAILY [facility] Last Admin: 04/25/21 08:30 Dose: 30 mg Documented by: Furosemide (Furosemide 20 Mg/2 Ml Vial) 20 mg IVPUSH Q8H [facility] Last Admin: 04/26/21 06:12 Dose: 20 mg Documented by: Glucagon (Glucagon,Human Recombinant 1 Mg Vial) 1 mg IM Q15M PRN PRN Reason: Hypoglycemia Insulin Human Lispro (Insulin Lispro 100 Units/Ml 3 Ml Vial) 0 unit SUBCUT WITHMEALSANDBED [facility]; Protocol Last Admin: 04/25/21 21:32 Dose: 1 units Documented by: Lorazepam (Lorazepam 2 Mg/Ml Sdv) 0 mg IV TITRATE PRN; Protocol PRN Reason: alcohol withdrawal Methylprednisolone Sodium Succinate (Methylprednisolone Sodium Succinate 125 Mg/2 Ml Sdv) 60 mg IVPUSH Q8H [facility] Last Admin: 04/26/21 06:08 Dose: 60 mg Documented by: Metoprolol Tartrate (Metoprolol Tartrate 50 Mg Tab) 100 mg PO BID [facility] Last Admin: 04/25/21 21:22 Dose: 100 mg Documented by: Nystatin (Nystatin Topical Powder 30 Gm Bottle) 1 gm TOP BID [facility] Last Admin: 04/25/21 21:24 Dose: 1 applic Documented by: Ondansetron HCl (Ondansetron 4 Mg/2 Ml Sdv) 4 mg IVPUSH Q4H PRN PRN Reason: Nausea/Vomiting Pantoprazole Sodium (Pantoprazole 40 Mg Tab.Cr) 40 mg PO ACBREAKFAST [facility] Last Admin: 04/26/21 05:14 Dose: 40 mg Documented by: Rivaroxaban (Rivaroxaban 10 Mg Tab) 20 mg PO DAILY [facility] Last Admin: 04/25/21 08:30 Dose: 20 mg Documented by: Sodium Chloride (Sodium Chloride 0.9% 10 Ml Syringe) 10 ml FLUSH ASDIRECTED PRN PRN Reason: Keep Vein Open Last Admin: 04/26/21 06:08 Dose: 10 ml Documented by: Discontinued Medications Furosemide (Furosemide 40 Mg/4 Ml Vial) 40 mg IVPUSH ONETIME ONE Stop: 04/25/21 03:41 Last Admin: 04/25/21 03:50 Dose: 40 mg Documented by: Ceftriaxone Sodium 1 gm/ (Sodium Chloride) 50 mls @ 100 mls/hr IV ONETIME ONE Stop: 04/25/21 05:06 Last Admin: 04/25/21 04:44 Dose: 100 mls/hr Documented by: Methylprednisolone Sodium Succinate (Methylprednisolone Sodium Succinate 125 Mg/2 Ml Sdv) 125 mg IVPUSH ONETIME ONE Stop: 04/25/21 03:41 Last Admin: 04/25/21 03:50 Dose: 125 mg Documented by: - Exam Urinary Catheter Total Time: 0Days 17Hours General: Alert, Oriented HEENT: Pupils Equal, Pupils Reactive, EOMI, Mucous Membr. Moist/[place] Neck: Supple Lungs: Decreased Breath Sounds Cardiovascular: Regular Rate, Regular Rhythm GI/Abdominal Exam: Normal Bowel Sounds, Soft, Non-Tender, No Organomegaly, No Distention, No Abnormal Bruit, No Mass, Pelvis Stable Back Exam: Normal Inspection, Full Range of Motion Extremities: Normal Inspection, Normal Range of Motion, Non-Tender, No Pedal Edema, Normal Capillary Refill Peripheral Pulses: 2+: Carotid (L), Carotid (R), Brachial (L), Brachial (R), Radial (L), Radial (R), Femoral (L), Femoral (R), Popliteal (L), Popliteal (R), Posterior Tibial (L), Posterior Tibial (R), Dorsalis Pedis (L), Dorsalis Pedis ( R) Skin: Warm, Dry, Intact Wound/Incisions: Healing Well Neurological: No New Focal Deficit Psy/Mental Status: Alert, Normal Affect, Normal Mood - Patient Data Lab Results Last 24 hrs: Laboratory Results - last 24 hr 04/25/21 04/25/21 04/25/21 Range/Units 08:02 10:01 11:31 Sodium (136-145) mmol/L Potassium (3.5-5.1) mmol/L Chloride (98-107) mmol/L Carbon Dioxide (21-32) mmol/L Anion Gap (7-13) mEq/L BUN (7-18) mg/dL Creatinine (0.55-1.02) mg/dL Est Cr Clr Drug Dosing mL/min Estimated GFR (MDRD) Glucose (70-99) mg/dL POC Glucose 133 H 201 H (70-99) mg/dL Calcium (8.5-10.1) mg/dL Troponin I High Sens 5 (<=51) pg/mL 04/25/21 04/25/21 04/26/21 Range/Units 16:47 20:49 05:40 Sodium 144 (136-145) mmol/L Potassium 3.5 (3.5-5.1) mmol/L Chloride 95 L (98-107) mmol/L Carbon Dioxide 44 H* (21-32) mmol/L Anion Gap 8.5 (7-13) mEq/L BUN 15 (7-18) mg/dL Creatinine 0.72 (0.55-1.02) mg/dL Est Cr Clr Drug Dosing 65.47 mL/min Estimated GFR (MDRD) > 60 Glucose 164 H (70-99) mg/dL POC Glucose 176 H 173 H (70-99) mg/dL Calcium 9.2 (8.5-10.1) mg/dL Troponin I High Sens (<=51) pg/mL Result Diagrams: 04/25/21 03:35 04/26/21 05:40 Jay Results Last 24 hrs: Microbiology 04/25/21 03:35 Aerobic Blood Culture - Preliminary Blood - Arm, Right NO GROWTH AFTER 1 DAY Anaerobic Blood Culture - Final Sepsis Event Note - Evaluation Sepsis Screening Result: No Definite Risk - Focused Exam Vital Signs: Vital Signs Temp Pulse Pulse Resp BP BP Pulse Ox 04/26/21 05:00 96.5 F L 77 20 147/75 H 91 L 04/25/21 23:15 97.1 F 80 20 166/80 H 90 L 04/25/21 21:22 88 168/86 H 04/25/21 20:45 98.1 F 88 20 168/86 H 92 L - Problem List Review Problem List Initiated/Reviewed/Updated: Yes - My Orders Last 24 Hours: My Active Orders 04/25/21 06:46 Blood Glucose Check, Bedside [RC] WITHMEALSANDBED Height and Weight [RC] 06 Intake and Output [RC] 06,14,22 Oxygen Therapy [RC] .PRN Up With Assistance [RC] ASDIRECTED Vital Signs [RC] 00,04,08,12,16,20 Acetaminophen [TylenoL] 650 mg PO Q4H PRN Ondansetron [Zofran] 4 mg IVPUSH Q4H PRN Sodium Chloride 0.9% [Saline Flush] 10 ml FLUSH ASDIRECTED PRN Peripheral IV Insertion Adult [OM.PC] Routine Saline Lock Insert [OM.PC] Routine Resuscitation Status Routine 04/25/21 06:47 Cardiac Monitoring [RC] 08,20 Peripheral IV Care [RC] 04/25/21 06:48 Aspiration Precautions [RC] ASDIRECTED Notify Provider [RC] PRN LORazepam [Ativan] See Protocol IV TITRATE PRN Seizure Precautions [OM.PC] Routine Seizure Precautions [OM.PC] Stat 04/25/21 06:49 Echo Comp wo Cont [US] Routine 04/25/21 06:50 RT Aerosol Therapy [RC] 03,07,11,15,19 Dextrose 50% in Water 50 ml IVPUSH Q15M PRN Glucagon,Human Recombinant [GlucaGen] 1 mg IM Q15M PRN 04/25/21 07:00 Albuterol/Ipratropium [DuoNeb 3.0-0.5 MG/3 ML] 3 ml NEB Q4HRRT Furosemide [Lasix] 20 mg IVPUSH Q8H Pantoprazole [ProTONIX] 40 mg PO ACBREAKFAST methylPREDNISolone Sod Succ [Solu-MEDROL] 60 mg IVPUSH Q8H 04/25/21 Breakfast Consistent Carbohydrate Diet [DIET] 04/25/21 08:00 Insulin Lispro [HumaLOG] See Protocol SUBCUT WITHMEALSANDBED 04/25/21 09:00 Aspirin [Halfprin] 81 mg PO DAILY DULoxetine [Cymbalta] 30 mg PO DAILY Diltiazem [Dilacor XR] 240 mg PO DAILY Metoprolol Tartrate [Lopressor] 100 mg PO BID Rivaroxaban [Xarelto] 20 mg PO DAILY 04/25/21 10:00 Nystatin [Nystop] 1 gm TOP BID 04/25/21 13:23 PT Evaluation and Treatment [CONS] Routine 04/26/21 07:19 ABG [BLOOD GAS ARTERIAL] [BG] Routine 04/27/21 05:00 BASIC METABOLIC PANEL,BMP [CHEM] Routine - Plan Plan:: Surgical History: Gastric bypass, nephrectomyside unknown by the patient Family History: Cancer, stroke, diabetes, hypertension, hyperlipidemia Social History: Tobacco: Active smoker Alcohol: The patient drinks 18 beers daily Caffeine: Coffee Drugs: Presently none. Past use: Methamphetamine, marijuana Allergies: No known drug allergies Code Status: DNR, DNI Assessment / Plan: Dyspnea secondary to CHF exacerbation and COPD exacerbation COPD, O2 dependent at 3 L. Solu-Medrol 6 mg IV every 8 hours plus DuoNeb every 4 hours Documented history of CHF however echocardiogram from September 16, 2020 overall is unremarkable. Will monitor patient telemetry and check saccadic enzymes. Strict I/O. Daily weight. Echocardiogram pending. Toprol-XL 100 mg p.o. twice daily plus Lasix 20 mg IV every 8 hours History of 1.5 cm right upper lobe pulmonary cyst. Outpatient monitoring with her primary care physician or with her provider Alcohol use. Seizure precautions. IV as needed Ativan per CIWA protocol Anxiety Atrial fibrillation. Telemetry monitoring. Delacort XR 240 mg p.o. daily plus metoprolol 100 mg p.o. twice daily plus Xarelto 20 mg p.o. daily Depression. Cymbalta 30 mg p.o. daily Coronary artery disease. Aspirin 81 mg p.o. daily plus metoprolol XL 100 mg p.o. twice daily Diabetes. Will check fingerstick glucose before every meal and at bedtime and provide some sliding scale plus Metformin 500 mg p.o. twice daily Hypertension. Delacort XR 240 mg p.o. daily plus metoprolol XL 100 mg p.o. twice daily plus Lasix 20 mg IV every 8 hours Obesity. Patient be counseled regarding lifestyle modification Smoker. Patient will be counseled regarding smoking cessation History of ovarian cancer, status post nephrectomyside unknown by the patient. The patient did not require chemotherapy or radiation therapy. She states that she is in remission and is not required to monitor this medical condition by Dr. Lombardi History of cholelithiasis History of vitamin D deficiency Constipation Insomnia Gout GI prophylaxis. Protonix 40 mg p.o. daily DVT prophylaxis. Xarelto 20 mg p.o. daily Disposition: Patient will likely be a candidate for discharge on this date April 26, 2021 END OF DOCTOR EMAMIS HISTORY AND PHYSICAL / CONSULTATION NOTE
[2021-04-26] MEDS: Aspirin 81 MG Tab.EC PO SCH (08:59)
[2021-04-26] MEDS: Rivaroxaban 10 MG Tab PO SCH (08:59)
[2021-04-26] MEDS: Diltiazem 240 MG Cap.ER PO SCH (09:00)
[2021-04-26] MEDS: DULoxetine 30 MG Cap PO SCH (09:00)
[2021-04-26] MEDS: Nystatin Topical Powder 30 GM Bottle TOP SCH (09:01)
[2021-04-26] MEDS: Metoprolol Tartrate 50 MG Tab PO SCH (09:01)
[2021-04-26 09:26] LABS: O2 DELIVERY DEVICE NASAL CANNULA; PO2 ARTERIAL 63 mmHg (70-100)
[2021-04-26 09:27] LABS: PCO2 ARTERIAL 70 mmHg (35-45)
[2021-04-26 09:28] LABS: ALLEN TEST PERFORMED
[2021-04-26] MEDS: Insulin Lispro 100 Units/ML 3 ML Vial SUBCUT SCH (10:04)
--- NOTE | 2021-04-26 10:17 | PCM.DCSUM1 ---
Discharge Summary - Hospital Course Free Text/Narrative:: START OF DOCTOR ALMASMIJayshree DISCHARGE SUMMARY Date of Admission: April 25, 2021 Date of Discharge: 10:13 AM on April 26, 2021 Primary Diagnosis: Dyspnea secondary to CHF exacerbation and COPD exacerbation Secondary Diagnosis: COPD, O2 dependent at 3 L Documented history of CHF however echocardiogram from September 16, 2020 overall is unremarkable History of 1.5 cm right upper lobe pulmonary cyst Alcohol abuse Anxiety Atrial fibrillation Depression Coronary artery disease Diabetes Hypertension Obesity Smoker History of ovarian cancer, status post nephrectomyside unknown by the patient. The patient did not require chemotherapy or radiation therapy. She states that she is in remission and is not required to be monitored for this medical condition by Dr. Lombardi History of cholelithiasis History of vitamin D deficiency Constipation Insomnia Gout Consultations: None Condition on Discharge: Fair Disposition: The patient will be advised follow-up with her primary care physician or with a provider 7 to 10 days post discharge for posthospitalization evaluation and for monitoring of her history of 1.5 cm right upper lobe pulmonary cyst The patient is advised to follow-up with pulmonology to 4 weeks post discharge for her diagnosis of COPD for which she is O2 dependent at 3 L Discharge Medications: Anoro Ellipta: 62.5 mcg / 25 m inhalation daily K-Dur 20 [place] p.o. twice daily Asmanex 220 mcg 1 inhalation twice daily Metformin 500 mg p.o. twice daily Lasix 60 mg p.o. twice daily Vitamin D 25 mcg p.o. daily Proventil HFA: 90 mcg/spray: 2 puffs every 4 hours as needed shortness of breath/wheeze Albuterol 2.5 mg nebulized every 4 hours as needed shortness of breath/wheeze Xarelto 20 mg p.o. daily Aspirin 81 mg p.o. daily Delacort XR 240 mg p.o. daily Cymbalta 30 mg p.o. daily Metoprolol 100 mg p.o. twice daily Nystatin powder to be applied to affected area twice daily Protonix 40 mg p.o. daily. Quantity 15. 0 refills. This is for GI prophylaxis while the patient is on prednisone and is not for dyspepsia/GERD Prednisone 10 mg p.o.: 5 tabs daily x3 days then 4 tabs daily x3 days then 3 tabs daily x3 days then 2 tabs daily x3 days then 1 tab daily x3 days. Quantity sufficient. 0 refills END OF DOCTOR EMAMIS DISCHARGE SUMMARY - Discharge Data Discharge Date: 04/26/21 Discharge Disposition: Home, Self-Care 01 Condition: Fair - Referral to Home Health Primary Care Physician: PCP None - Patient Summary/Data Consults: Consultations 04/25/21 13:23 PT Evaluation and Treatment [CONS] Routine - Patient Instructions Diet: Heart Healthy Diet, Low Sodium, Fluid Restriction, Diabetic Diet Activity: As Tolerated - Discharge Plan Prescriptions/Med Rec: Nystatin [Nystop] 1 gm TOP BID 15 Days #1 bottle predniSONE [Prednisone] 10 mg PO DAILY 1 Days #1 tablet Pantoprazole [ProTONIX] 40 mg PO ACBREAKFAST 15 Days #15 tab.cr Home Medications: Home Meds Albuterol [Proventil Neb Soln] 2.5 mg NEB Q4H PRN #90 ml 01/25/15 [Rx] Metoprolol Tartrate [Lopressor] 100 mg PO BID 09/17/15 [History] Rivaroxaban [Xarelto] 20 mg PO DAILY 09/17/15 [History] Aspirin [Halfprin] 81 mg PO DAILY 06/04/19 [History] DULoxetine [Cymbalta] 30 mg PO DAILY 06/04/19 [History] Albuterol Sulfate [Proair Hfa] 2 puff IH Q4H PRN 04/25/21 [History] Cholecalciferol (Vitamin D3) [Vitamin D3] 25 mcg PO DAILY 04/25/21 [History] Diltiazem [Dilacor XR] 240 mg PO DAILY 04/25/21 [History] Furosemide 60 mg PO BID 04/25/21 [History] Mometasone Furoate [Asmanex] 1 puff IH BID 04/25/21 [History] Potassium Chloride [Klor-Con M20] 20 meq PO BID 04/25/21 [History] Umeclidinium Brm/Vilanterol Tr [Anoro Ellipta 62.5-25 MCG] 1 puff IH DAILY 04/25/21 [History] metFORMIN [Glucophage] 500 mg PO BIDMEALS 04/25/21 [History] Nystatin [Nystop] 1 gm TOP BID 15 Days #1 bottle 04/26/21 [Rx] Pantoprazole [ProTONIX] 40 mg PO ACBREAKFAST 15 Days #15 tab.cr 04/26/21 [Rx] predniSONE [Prednisone] 10 mg PO DAILY 1 Days #1 tablet 04/26/21 [Rx] Forms: ED Department Discharge Referrals: PCP,None [Primary Care Provider] - - Discharge Summary/Plan Comment DC Time >30 min.: Yes - Review of Systems General: Reports: No Symptoms HEENT: Reports: No Symptoms Pulmonary: Reports: No Symptoms Cardiovascular: Reports: No Symptoms Gastrointestinal: Reports: No Symptoms Genitourinary: Reports: No Symptoms Musculoskeletal: Reports: No Symptoms Skin: Reports: No Symptoms Neurological: Reports: No Symptoms Psychiatric: Reports: No Symptoms - Patient Data Vitals - Most Recent: Last Vital Signs Temp 97.3 F 04/26/21 07:58 Pulse 70 04/26/21 09:01 Resp 20 04/26/21 07:58 BP 148/71 H 04/26/21 09:01 Pulse Ox 92 L 04/26/21 07:58 Weight - Most Recent: 243 lb 9.6 oz I&O - Last 24 hours: Intake & Output 04/25/21 04/26/21 04/26/21 22:59 06:59 14:59 Intake Total 225 400 Output Total 1400 875 Balance -1175 -891 Lab Results - Last 24 hrs: Laboratory Results - last 24 hr 04/25/21 04/25/21 04/25/21 Range/Units 10:01 11:31 16:47 ABG pH (7.35-7.45) ABG pCO2 (35-45) mmHg ABG pO2 (70-100) mmHg ABG HCO3 (22-26) mmol/L ABG O2 Saturation ABG Base Excess Phil Test O2 Delivery Device Sodium (136-145) mmol/L Potassium (3.5-5.1) mmol/L Chloride (98-107) mmol/L Carbon Dioxide (21-32) mmol/L Anion Gap (7-13) mEq/L BUN (7-18) mg/dL Creatinine (0.55-1.02) mg/dL Est Cr Clr Drug Dosing mL/min Estimated GFR (MDRD) Glucose (70-99) mg/dL POC Glucose 201 H 176 H (70-99) mg/dL Calcium (8.5-10.1) mg/dL Troponin I High Sens 5 (<=51) pg/mL 0704/26/21 04/26/21 Range/Units 20:49 05:40 07:41 ABG pH (7.35-7.45) ABG pCO2 (35-45) mmHg ABG pO2 (70-100) mmHg ABG HCO3 (22-26) mmol/L ABG O2 Saturation ABG Base Excess Phil Test O2 Delivery Device Sodium 144 (136-145) mmol/L Potassium 3.5 (3.5-5.1) mmol/L Chloride 95 L (98-107) mmol/L Carbon Dioxide 44 H* (21-32) mmol/L Anion Gap 8.5 (7-13) mEq/L BUN 15 (7-18) mg/dL Creatinine 0.72 (0.55-1.02) mg/dL Est Cr Clr Drug Dosing 65.47 mL/min Estimated GFR (MDRD) > 60 Glucose 164 H (70-99) mg/dL POC Glucose 173 H 157 H (70-99) mg/dL Calcium 9.2 (8.5-10.1) mg/dL Troponin I High Sens (<=51) pg/mL 04/26/21 Range/Units 09:20 ABG pH 7.44 (7.35-7.45) ABG pCO2 70 H* (35-45) mmHg ABG pO2 63 L (70-100) mmHg ABG HCO3 47.0 H (22-26) mmol/L ABG O2 Saturation TNP ABG Base Excess TNP Phil Test Performed O2 Delivery Device Nasal cannula Sodium (136-145) mmol/L Potassium (3.5-5.1) mmol/L Chloride (98-107) mmol/L Carbon Dioxide (21-32) mmol/L Anion Gap (7-13) mEq/L BUN (7-18) mg/dL Creatinine (0.55-1.02) mg/dL Est Cr Clr Drug Dosing mL/min Estimated GFR (MDRD) Glucose (70-99) mg/dL POC Glucose (70-99) mg/dL Calcium (8.5-10.1) mg/dL Troponin I High Sens (<=51) pg/mL [facility]VI Results - Last 24 hrs: Microbiology 04/25/21 03:35 Aerobic Blood Culture - Preliminary Blood - Arm, Right NO GROWTH AFTER 1 DAY Anaerobic Blood Culture - Final Med Orders - Current: Current Medications Acetaminophen (Acetaminophen 325 Mg Tab) 650 mg PO Q4H PRN PRN Reason: Pain (Mild 1-3)/fever Albuterol/Ipratropium (Albuterol/Ipratropium 3.0-0.5 Mg/3 Ml Neb Soln) 3 ml NEB Q4HRRT [facility] Last Admin: 04/26/21 07:34 Dose: Not Given Documented by: Aspirin (Aspirin 81 Mg Tab.Ec) 81 mg PO DAILY [facility] Last Admin: 04/26/21 08:59 Dose: 81 mg Documented by: Dextrose/Water (50% Dextrose In Water 50 Ml Syringe) 50 ml IVPUSH Q15M PRN PRN Reason: Hypoglycemia Diltiazem HCl (Diltiazem 240 Mg Cap.Er) 240 mg PO DAILY [facility] Last Admin: 04/26/21 09:00 Dose: 240 mg Documented by: Duloxetine HCl (Duloxetine 30 Mg Cap) 30 mg PO DAILY [facility] Last Admin: 04/26/21 09:00 Dose: 30 mg Documented by: Furosemide (Furosemide 20 Mg/2 Ml Vial) 20 mg IVPUSH Q8H [facility] Last Admin: 04/26/21 06:12 Dose: 20 mg Documented by: Glucagon (Glucagon,Human Recombinant 1 Mg Vial) 1 mg IM Q15M PRN PRN Reason: Hypoglycemia Insulin Human Lispro (Insulin Lispro 100 Units/Ml 3 Ml Vial) 0 unit SUBCUT WITHMEALSANDBED [facility]; Protocol Last Admin: 04/26/21 10:04 Dose: 1 units Documented by: Lorazepam (Lorazepam 2 Mg/Ml Sdv) 0 mg IV TITRATE PRN; Protocol PRN Reason: alcohol withdrawal Methylprednisolone Sodium Succinate (Methylprednisolone Sodium Succinate 125 Mg/2 Ml Sdv) 60 mg IVPUSH Q8H [facility] Last Admin: 04/26/21 06:08 Dose: 60 mg Documented by: Metoprolol Tartrate (Metoprolol Tartrate 50 Mg Tab) 100 mg PO BID [facility] Last Admin: 04/26/21 09:01 Dose: 100 mg Documented by: Nystatin (Nystatin Topical Powder 30 Gm Bottle) 1 gm TOP BID [facility] Last Admin: 04/26/21 09:01 Dose: 1 applic Documented by: Ondansetron HCl (Ondansetron 4 Mg/2 Ml Sdv) 4 mg IVPUSH Q4H PRN PRN Reason: Nausea/Vomiting Pantoprazole Sodium (Pantoprazole 40 Mg Tab.Cr) 40 mg PO ACBREAKFAST [facility] Last Admin: 04/26/21 05:14 Dose: 40 mg Documented by: Rivaroxaban (Rivaroxaban 10 Mg Tab) 20 mg PO DAILY [facility] Last Admin: 04/26/21 08:59 Dose: 20 mg Documented by: Sodium Chloride (Sodium Chloride 0.9% 10 Ml Syringe) 10 ml FLUSH ASDIRECTED PRN PRN Reason: Keep Vein Open Last Admin: 04/26/21 06:08 Dose: 10 ml Documented by: Discontinued Medications Furosemide (Furosemide 40 Mg/4 Ml Vial) 40 mg IVPUSH ONETIME ONE Stop: 04/25/21 03:41 Last Admin: 04/25/21 03:50 Dose: 40 mg Documented by: Ceftriaxone Sodium 1 gm/ (Sodium Chloride) 50 mls @ 100 mls/hr IV ONETIME ONE Stop: 04/25/21 05:06 Last Admin: 04/25/21 04:44 Dose: 100 mls/hr Documented by: Methylprednisolone Sodium Succinate (Methylprednisolone Sodium Succinate 125 Mg/2 Ml Sdv) 125 mg IVPUSH ONETIME ONE Stop: 04/25/21 03:41 Last Admin: 04/25/21 03:50 Dose: 125 mg Documented by: - Exam General: Reports: Alert, Oriented HEENT: Reports: Pupils Equal, Pupils Reactive, EOMI, Mucous Membr. Moist/[place] Neck: Reports: Supple Lungs: Reports: Decreased Breath Sounds Cardiovascular: Reports: Regular Rate, Regular Rhythm GI/Abdominal Exam: Normal Bowel Sounds, Soft, Non-Tender, No Organomegaly, No Distention, No Abnormal Bruit, No Mass, Pelvis Stable Back Exam: Reports: Normal Inspection, Full Range of Motion Extremities: Normal Inspection, Normal Range of Motion, Non-Tender, No Pedal Edema, Normal Capillary Refill Skin: Reports: Warm, Dry, Intact Wound/Incisions: Reports: Healing Well Neurological: Reports: No New Focal Deficit Psy/Mental Status: Reports: Alert, Normal Affect, Normal Mood
[2021-04-26 11:59] VITALS: BP 117/56; PULSE 82
== END 2021-04-26 12:00 | disposition home or self-care (01) | DRG 292 ==
LOC: DL.ED 03:14 → DL.MS 05:22
PROVIDERS: ADMIT Internal Medicine; ATTEND Internal Medicine
DX: I11.0 Hypertensive heart disease with heart failure (principal); J44.1 Chronic obstructive pulmonary disease with (acute) exacerbation; Z68.41 Body mass index [BMI] 40.0-44.9, adult; F32.9 Major depressive disorder, single episode, unspecified; F41.9 Anxiety disorder, unspecified; I48.91 Unspecified atrial fibrillation; Z79.01 Long term (current) use of anticoagulants; I25.10 Atherosclerotic heart disease of native coronary artery without angina pectoris; E11.9 Type 2 diabetes mellitus without complications; I50.9 Heart failure, unspecified; F17.210 Nicotine dependence, cigarettes, uncomplicated; Z85.43 Personal history of malignant neoplasm of ovary; Z90.5 Acquired absence of kidney; M81.0 Age-related osteoporosis without current pathological fracture; K59.00 Constipation, unspecified; G47.00 Insomnia, unspecified; M10.9 Gout, unspecified; Z98.84 Bariatric surgery status; Z66 Do not resuscitate; Z20.822 Contact with and (suspected) exposure to COVID-19; E66.9 Obesity, unspecified
CPT/HCPCS: 36415; 36600; 51702; 71045; 80048; 80053; 80307; 82803; 82947; 83605; 83735; 83880; 84484; 85025; 87040; 93306; 94640; 96365; 96375; 97162-GP; 99285-25; A9270-GY; J0696; J1815-GY; J1940; J2930; J7620-GY; U0002

== ENCOUNTER 2021-05-24 20:21 | Inpatient (IN) | payer MEDICARE, OTHER ==
[2021-05-24] MEDS ORDERED: HYDROmorphone 1 MG/ML Syringe IVPUSH ONE (20:44)
[2021-05-24] MEDS ORDERED: Ondansetron 4 MG/2 ML SDV IVPUSH ONE (20:45)
[2021-05-24 21:22] LABS: ANION GAP 11.7 mEq/L (7-13); CHLORIDE,CL 93 mmol/L (98-107); SODIUM,NA 135 mmol/L (136-145)
--- NOTE | 2021-05-24 22:15 | CR ---
PROCEDURE INFORMATION: Exam: XR Left Femur Exam date and time: 05/24/2021 9:01 PM Age: 65 years old Clinical indication: Other: Fall/pain; Additional info: Fall, deformity TECHNIQUE: Imaging protocol: XR Left femur. Views: 1 view. COMPARISON: No relevant prior studies available. FINDINGS: Bones/joints: No evidence of fracture or knee dislocation on this single view of the mid to distal left femur. Soft tissues: Medial soft tissue swelling/hematoma. IMPRESSION: No evidence of acute fracture.
--- NOTE | 2021-05-24 22:17 | CR ---
PROCEDURE INFORMATION: Exam: XR Left Knee Exam date and time: 05/24/2021 9:36 PM Age: 65 years old Clinical indication: Other: Fall/pain; Additional info: Fall, deformity TECHNIQUE: Imaging protocol: XR Left knee. Views: 1 or 2 views. COMPARISON: CR Femur Min 1V Lt 05/24/2021 9:01 PM FINDINGS: Bones/joints: No acute fracture or dislocation. Soft tissues: Marked anterior and medial soft tissue swelling. IMPRESSION: No acute osseous abnormality.
--- NOTE | 2021-05-24 22:18 | CR ---
PROCEDURE INFORMATION: Exam: XR Left Tibia and Fibula Exam date and time: 05/24/2021 9:34 PM Age: 65 years old Clinical indication: Other: Fall/pain; Additional info: Fall, hit head o@ concentrator, pain TECHNIQUE: Imaging protocol: XR Left tibia and fibula. Views: 2 views. COMPARISON: No relevant prior studies available. FINDINGS: Bones/joints: No acute fracture or dislocation. Soft tissues: Unremarkable. IMPRESSION: No acute findings.
--- NOTE | 2021-05-24 22:22 | CT ---
PROCEDURE INFORMATION: Exam: CT Pelvis Without Contrast; Skeletal Exam date and time: 05/24/2021 9:25 PM Age: 65 years old Clinical indication: Other: Fall/left sided pain; Additional info: Fall, hit head o@ concentrator, pain TECHNIQUE: Imaging protocol: Computed tomography images of the pelvis without contrast. Exam focused on the skeletal structures. Radiation optimization: All CT scans at this facility use at least one of these dose optimization techniques: automated exposure control; mA and/or kV adjustment per patient size (includes targeted exams where dose is matched to clinical indication); or iterative reconstruction. COMPARISON: CR Femur Min 1V Lt 05/24/2021 9:01 PM FINDINGS: Bones/joints: Unremarkable. No acute fracture. No dislocation. Soft tissues: Left anterior abdominal wall subcutaneous fat stranding. IMPRESSION: No acute osseous abnormality.
--- NOTE | 2021-05-24 22:26 | CT ---
PROCEDURE INFORMATION: Exam: CT Head Without Contrast Exam date and time: 05/24/2021 9:25 PM Age: 65 years old Clinical indication: Other: Fall, chronic anticog, afib, copd; Additional info: Fall, deformity TECHNIQUE: Imaging protocol: Computed tomography of the head without contrast. Total images: 149 Radiation optimization: All CT scans at this facility use at least one of these dose optimization techniques: automated exposure control; mA and/or kV adjustment per patient size (includes targeted exams where dose is matched to clinical indication); or iterative reconstruction. COMPARISON: No relevant prior studies available. FINDINGS: Brain: Deep white matter hypodensity compatible with chronic small vessel ischemic change. Cerebral ventricles: No ventriculomegaly. Paranasal sinuses: Minimal fluid right sphenoid sinus. Mastoid air cells: Opacification of right and left mastoid air cells. Bones/joints: Unremarkable. No acute fracture. Soft tissues: Unremarkable. IMPRESSION: 1. No acute intracranial process. 2. Bilateral opacification mastoid air cells, possibly long-standing.
--- NOTE | 2021-05-24 22:34 | CT ---
PROCEDURE INFORMATION: Exam: CT Cervical Spine Without Contrast Exam date and time: 05/24/2021 9:25 PM Age: 65 years old Clinical indication: Other: Fall; Additional info: Fall, hit head o@ concentrator, pain TECHNIQUE: Imaging protocol: Computed tomography images of the cervical spine without contrast. Total images: 238 Radiation optimization: All CT scans at this facility use at least one of these dose optimization techniques: automated exposure control; mA and/or kV adjustment per patient size (includes targeted exams where dose is matched to clinical indication); or iterative reconstruction. COMPARISON: CT Chest wo Cont 02/28/2021 2:04 PM FINDINGS: Bones/joints: Cervicothoracic vertebral body heights and alignment preserved. Discs/Spinal canal/Neural foramina: Multilevel degenerative changes with some spurring. No significant spinal stenosis identified. Sinuses: Minimal fluid sphenoid sinus. Mastoid air cells: Opacification bilateral mastoid air cells possibly long-standing. Auditory system: Equivocal minimal opacification/fluid right middle ear. Lungs: Lung apices are normal. Soft tissues: Unremarkable. IMPRESSION: 1. No acute fracture cervical spine. 2. Suggestion of possible very minimal abnormal soft tissue/fluid right middle ear. Opacification of bilateral mastoid air cells nonspecific possibly long-standing in nature.
--- NOTE | 2021-05-24 23:50 | EDM.PDOC ---
ED HPI GENERAL MEDICAL PROBLEM - General Chief Complaint: Trauma Stated Complaint: FELL RIGHT INJURED KNEE Time Seen by Provider: 05/24/21 20:40 Source of Information: Reports: Patient History Limitations: Reports: No Limitations - History of Present Illness INITIAL COMMENTS - FREE TEXT/NARRATIVE: ED via [facility] with c/o pain to left knee leg. Reported falling , legs got shakey and gave out, landed left knee. Does not think hit head but not sure, Denies headache or sore area on head. Does not use walker . notes legs and body shaky a couple times prior both times has not been wearing oxygen. Has COPD and supposed to wear all time. Denies neck or back pain. No nausea. No chest pain GCS 15 Left Knee Pain Score (Numeric/FACES): 10 - Related Data Allergies Allergy/AdvReac Type Severity Reaction Status Date / Time No Known Allergies Allergy Verified 04/25/21 06:07 Home Meds: Home Meds Albuterol [Proventil Neb Soln] 2.5 mg NEB Q4H PRN #90 ml 01/25/15 [Rx] Metoprolol Tartrate [Lopressor] 100 mg PO BID 09/17/15 [History] Rivaroxaban [Xarelto] 20 mg PO DAILY 09/17/15 [History] Aspirin [Halfprin] 81 mg PO DAILY 06/04/19 [History] DULoxetine [Cymbalta] 30 mg PO DAILY 06/04/19 [History] Albuterol Sulfate [Proair Hfa] 2 puff IH Q4H PRN 04/25/21 [History] Cholecalciferol (Vitamin D3) [Vitamin D3] 25 mcg PO DAILY 04/25/21 [History] Diltiazem [Dilacor XR] 240 mg PO DAILY 04/25/21 [History] Furosemide 60 mg PO BID 04/25/21 [History] Mometasone Furoate [Asmanex] 1 puff IH BID 04/25/21 [History] Potassium Chloride [Klor-Con M20] 20 meq PO BID 04/25/21 [History] Umeclidinium Brm/Vilanterol Tr [Anoro Ellipta 62.5-25 MCG] 1 puff IH DAILY 04/25/21 [History] metFORMIN [Glucophage] 500 mg PO BIDMEALS 04/25/21 [History] Nystatin [Nystop] 1 gm TOP BID 15 Days #1 bottle 04/26/21 [Rx] Pantoprazole [ProTONIX] 40 mg PO ACBREAKFAST 15 Days #15 tab.cr 04/26/21 [Rx] predniSONE [Prednisone] 10 mg PO DAILY 1 Days #1 tablet 04/26/21 [Rx] Past Medical History HEENT History: Reports: Epistaxis, Other (See Below) Other HEENT History: frequent drainage from ears Cardiovascular History: Reports: Afib, Heart Failure, Hypertension, SOB on Exertion Respiratory History: Reports: Bronchitis, Recurrent, COPD HORSE DOCTOR History: Reports: Other HORSE DOCTOR History: past ; 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 Neurological History: Reports: None Psychiatric History: Reports: Addiction, Anxiety Endocrine/Metabolic History: Reports: Diabetes, Type II, Obesity/BMI 30+ Dermatologic History: Reports: None - Infectious Disease History Infectious Disease History: Reports: None - Past Surgical History GI Surgical History: Reports: Other (See Below) Social & Family History - Family History Family Medical History: Unobtainable - Caffeine Use Caffeine Use: Reports: Coffee - Living Situation & Occupation Living situation: Reports: Single, with Family Occupation: Unemployed Review of Systems - Review of Systems Review Of Systems: Comprehensive ROS is negative, except as noted in HPI. ED EXAM, GENERAL - Physical Exam Exam: See Below Exam Limited By: No Limitations General Appearance: Alert, Moderate Distress Eye Exam: Bilateral Eye: EOMI, PERRL Ears: Normal External Exam Nose: Normal Inspection Throat/Mouth: Normal Inspection Head: Atraumatic, Normocephalic, Other (cross tattoo mid forehead) Respiratory/Chest: No Respiratory Distress, Decreased Breath Sounds, Crackles (basees), Other (oxygen dependent 4L). No: Wheezing GI/Abdominal: Normal Bowel Sounds Extremities: Joint Swelling (left knee swollen bruised, large anterior medial hematoma, .5cm superficial abrasion mid patella ), Leg Pain (knee, femur mid to lower tib/fib non tender), Limited Range of Motion (left knee). No: Normal Inspection Neurological: Alert, Oriented, Normal Cognition Psychiatric: Normal Affect Skin Exam: Warm, Dry, Ecchymosis (left knee) #1 Interpretation EKG Date: 05/24/21 Time: 22:06 Rhythm: A-Fib Rate (Beats/Min): 87 P-Wave: Variable QRS: LBBB Course - Vital Signs Last Recorded V/S: Last Vital Signs Temp 95.7 F L 05/25/21 01:06 Pulse 80 05/25/21 01:06 Resp 20 05/25/21 01:06 BP 142/65 H 05/25/21 01:06 Pulse Ox 92 L 05/25/21 01:07 - Orders/Labs/Meds Labs: Laboratory Tests 05/24/21 05/24/21 05/24/21 Range/Units 21:00 21:00 21:00 WBC 10.2 H (5.0-10.0) 10^3/uL RBC 4.86 (4.2-5.4) 10^6/uL Hgb 13.1 (12.0-16.0) g/dL Hct 41.9 (37.0-47.0) % MCV 86.2 D (80-100) fL MCH 27.0 (27.0-34.0) pg MCHC 31.3 L (33.0-35.0) g/dL Plt Count 165 (150-450) 10^3/uL Neut % (Auto) 70.0 (42.2-75.2) % Lymph % (Auto) 18.5 L (20.5-50.1) % Mckenzie % (Auto) 7.8 (2-8) % Eos % (Auto) 3.4 H (1.0-3.0) % Baso % (Auto) 0.3 (0.0-1.0) % PT 12.2 H (9.0-12.0) SEC INR 1.2 (0.9-1.2) Sodium 135 L (136-145) mmol/L Potassium 3.7 (3.5-5.1) mmol/L Chloride 93 L (98-107) mmol/L Carbon Dioxide 34 H (21-32) mmol/L Anion Gap 11.7 (7-13) mEq/L BUN 13 (7-18) mg/dL Creatinine 0.69 (0.55-1.02) mg/dL Est Cr Clr Drug Dosing 68.32 mL/min Estimated GFR (MDRD) > 60 BUN/Creatinine Ratio 18.8 (No establ ref range) Glucose 113 H (70-99) mg/dL Calcium 8.7 (8.5-10.1) mg/dL Total Bilirubin 0.3 (0.2-1.0) mg/dL AST 13 L (15-37) U/L ALT 18 (14-59) U/L Alkaline Phosphatase 66 (46-116) U/L Total Protein 6.5 (6.4-8.2) g/dL Albumin 2.9 L (3.4-5.0) g/dL Globulin 3.6 Albumin/Globulin Ratio 0.81 Ethyl Alcohol (0) mg/dL Blood Type Gel Antibody Screen 05/24/21 05/24/21 Range/Units 21:00 21:00 WBC (5.0-10.0) 10^3/uL RBC (4.2-5.4) 10^6/uL Hgb (12.0-16.0) g/dL Hct (37.0-47.0) % MCV (80-100) fL MCH (27.0-34.0) pg MCHC (33.0-35.0) g/dL Plt Count (150-450) 10^3/uL Neut % (Auto) (42.2-75.2) % Lymph % (Auto) (20.5-50.1) % Mckenzie % (Auto) (2-8) % Eos % (Auto) (1.0-3.0) % Baso % (Auto) (0.0-1.0) % PT (9.0-12.0) SEC INR (0.9-1.2) Sodium (136-145) mmol/L Potassium (3.5-5.1) mmol/L Chloride (98-107) mmol/L Carbon Dioxide (21-32) mmol/L Anion Gap (7-13) mEq/L BUN (7-18) mg/dL Creatinine (0.55-1.02) mg/dL Est Cr Clr Drug Dosing mL/min Estimated GFR (MDRD) BUN/Creatinine Ratio (No establ ref range) Glucose (70-99) mg/dL Calcium (8.5-10.1) mg/dL Total Bilirubin (0.2-1.0) mg/dL AST (15-37) U/L ALT (14-59) U/L Alkaline Phosphatase (46-116) U/L Total Protein (6.4-8.2) g/dL Albumin (3.4-5.0) g/dL Globulin Albumin/Globulin Ratio Ethyl Alcohol 32 (0) mg/dL Blood Type A POSITIVE Gel Antibody Screen Negative Meds: Medications Discontinued Medications Generic Name Dose Route Start Last Admin Trade Name Freq PRN Reason Stop Dose Admin Acetaminophen 650 mg 05/25/21 01:06 Acetaminophen 325 Mg Tab PO Q4H PRN Pain (Mild 1-3)/fever Dextrose/Water 50 ml 05/25/21 01:11 50% Dextrose In Water 50 Ml Syringe IVPUSH Q15M PRN Hypoglycemia Glucagon 1 mg 05/25/21 01:11 Glucagon,Human Recombinant 1 Mg Vial IM Q15M PRN Hypoglycemia Hydromorphone HCl 1 mg 05/24/21 20:44 05/24/21 21:00 Hydromorphone 1 Mg/Ml Syringe IVPUSH 05/24/21 20:45 1 mg ONETIME ONE Administration Hydromorphone HCl 1 mg 05/25/21 00:21 05/25/21 00:26 Hydromorphone 1 Mg/Ml Syringe IVPUSH 05/25/21 00:22 1 mg ONETIME ONE Administration Insulin Human Lispro 0 unit 05/25/21 08:00 Insulin Lispro 100 Units/Ml 3 Ml Vial SUBCUT WITHMEALSANDBED LAURE Protocol Lorazepam 0 mg 05/25/21 01:10 Lorazepam 2 Mg/Ml Sdv IV TITRATE PRN alcohol withdrawal Protocol Morphine Sulfate 2 mg 05/25/21 01:14 05/25/21 02:08 Morphine 2 Mg/Ml Syringe IVPUSH 2 mg Q2H PRN Administration Pain (moderate 4-6) Ondansetron HCl 4 mg 05/24/21 20:45 05/24/21 21:00 Ondansetron 4 Mg/2 Ml Sdv IVPUSH 05/24/21 20:46 4 mg ONETIME ONE Administration Ondansetron HCl 4 mg 05/25/21 01:06 05/25/21 02:06 Ondansetron 4 Mg/2 Ml Sdv IVPUSH 4 mg Q4H PRN Administration Nausea/Vomiting Sodium Chloride 10 ml 05/25/21 01:06 Sodium Chloride 0.9% 10 Ml Syringe FLUSH ASDIRECTED PRN Keep Vein Open - Re-Assessments/Exams Free Text/Narrative Re-Assessment/Exam: mild increase in large hematoma, pea size fluid blister medial knee. pedal pulses intact. sensation intact. TC Dr Alfred accet patient for admission, Departure - Departure Time of Disposition: 00:40 Disposition: Admitted As Inpatient 64 Condition: Good Clinical Impression: Hematoma, Left medial knee pain, Supplemental oxygen dependent, Abrasion, Chronic atrial fibrillation, Chronic anticoagulation Fall Qualifiers: Encounter type: initial encounter Qualified Code(s): W19.XXXA - Unspecified fall, initial encounter COPD (chronic obstructive pulmonary disease) Qualifiers: COPD type: unspecified COPD Qualified Code(s): J44.9 - Chronic obstructive pulmonary disease, unspecified - Discharge Information Sepsis Event Note (ED) - Evaluation Sepsis Screening Result: No Definite Risk
[2021-05-25] MEDS ORDERED: HYDROmorphone 1 MG/ML Syringe IVPUSH ONE (00:21)
[2021-05-25] MEDS ORDERED: Ondansetron 4 MG/2 ML SDV IVPUSH PRN (01:06)
[2021-05-25] MEDS ORDERED: Sodium Chloride 0.9% 10 ML Syringe FLUSH PRN (01:06)
[2021-05-25] MEDS ORDERED: Acetaminophen 325 MG Tab PO PRN (01:06)
[2021-05-25] MEDS ORDERED: LORazepam 2 MG/ML SDV IV PRN (01:10)
[2021-05-25] MEDS ORDERED: 50% Dextrose in Water 50 ML Syringe IVPUSH PRN (01:11)
[2021-05-25] MEDS ORDERED: Glucagon,Human Recombinant 1 MG Vial IM PRN (01:11)
[2021-05-25] MEDS ORDERED: Morphine 2 MG/ML SYRINGE IVPUSH PRN (01:14)
--- NOTE | 2021-05-25 01:23 | PCM.SN.2 ---
- Free Text/Narrative Note: START OF DOCTOR KYRIE HISTORY AND PHYSICAL / CONSULTATION NOTE Chief Complaint: Status post fall with resultant left knee pain History of Present Illness: The patient is a 5-year-old female who presents chief complaint of fall with resultant left knee pain. The patient is unaware of the time at which she fell. She indicates that she went up to get go to the restroom and her legs gave out and she subsequently fell on her left knee. The patient indicates that she was noncompliant with wearing her oxygen at the time as she has a known history of COPD for which she is O2 dependent 3 L. Patient also has known history of alcohol abuse and she had Surjit that she drank 4 beers on this night of hospitalization. The patient is unable to state whether she had head trauma or loss of consciousness. The patient denies preceding or during the event: Chest pain, dyspnea, lightheadedness, dizziness, diaphoresis, palpitations, sense of trapped heartbeat, sensation irregular heartbeat, diplopia, blurry vision, dysphagia, dysphagia, paresthesia/anesthesia/myasthenia of any part of her body aside from weakness in her legs. She presents for further evaluation Surgical History: Gastric bypass, nephrectomyside unknown by patient Family History: Cancer, stroke, diabetes, hypertension, hyperlipidemia Social History: Tobacco: Active smoker Alcohol: Ongoing alcohol abuse including on average 18 beers nightly Caffeine: Coffee Drugs: Presently none. In the past has used methamphetamine and marijuana Allergies: No known drug allergies Code Status: Full Pertinent Laboratory Results / Pertinent Radiology Results / Pertinent Diagnostic Results / Pertinent Vital Signs: Blood pressure 126/56, pulse 82, respiration 20, temperature 97.7 degrees, 92% on 4 L Physical Examination: General: -Alert -No acute distress -No dyspnea -No tachypnea -Obese -Query whether the patient is intoxicated Head: -Atraumatic -Normocephalic Eyes: -Pupils equally round and reactive to light and accommodation -Extraocular muscles intact Neurological: -Cranial nerves II-XII intact Neck: -No jugular venous distention -No thyromegaly -No cervical lymphadenopathy Heart: -Regular rate -iRegular rhythm -No murmurs -No gallops -No rubs Lungs: -No wheeze -No rhonchi -No rales -Distant breath sounds bilaterally Abdomen: -Normal bowel sounds in all four quadrants -No rebound -No guarding -No tenderness Extremities: -2/4 pulse in all four extremities -No clubbing -No cyanosis -Large left knee joint effusion -No calf tenderness present bilaterally -Negative Homans sign bilaterally Musculoskeletal: -5/5 bilateral upper extremity strength -5/5 bilateral lower extremity strength -Sensorium of bilateral upper extremities are equal and intact -Sensorium of bilateral lower extremities are equal and intact Additional Details / Additional Findings / Exceptions / Miscellaneous: Assessment / Plan: Status post fall with large left hematoma. As needed analgesia. Monitor hemoglobin levels intermittently. Neurovascular checks of left lower extremity every 4 hours physical therapy consult. Occupational Therapy consult. Case management/social work consult for possible placement Medical noncompliance. This was witnessed by patient sustaining fall due to not wearing her oxygen at home. Patient becomes regard medical compliance Atrial fibrillation. Anticoagulation will be held secondary to large left knee joint effusion Anxiety Alcohol use. Seizure precautions. IV as needed Ativan per [facility] protocol. Check ethanol level History of 1.5 cm right upper lobe pulmonary cyst. Outpatient follow-up with her primary care physician or with a provider Depression History of ovarian cancer, status post oophorectomyside unknown by patient. The patient Surjit that she is in remission and is not required to have this medical condition monitored by . Severe pulmonary hypertension COPD, O2 dependent 3 L Coronary artery disease Diabetes. Will check fasting glucose before every meal and at bedtime and provide some sign scale Hypertension Obesity. Patient counseled regarding lifestyle modification Smoker. Patient be counseled regarding smoking cessation Osteoporosis History of cholelithiasis History vitamin D deficiency Constipation Insomnia Gout DVT prophylaxis. Bilateral SCD Disposition: I discussed the patient's case with Dr. Bullock at [facility], and she has been kind of to set the patient for transfer so that she may be evaluated by orthopedic surgery as she will likely require arthrocentesis and continue monitoring of her left knee hematoma given that she is on anticoagulation at home for her history of atrial fibrillation. At the time of admission, the patient's home occasions were pending input to the EMR/DHR system. Once their input, they will be reviewed and reconciled END OF DOCTOR EMAMIS HISTORY AND PHYSICAL / CONSULTATION NOTE
--- NOTE | 2021-05-25 01:27 | PCM.SN.2 ---
- Free Text/Narrative Note: START OF DOCTOR EMAMIS DISCHARGE SUMMARY Date of Admission: 12:49 AM on May 25, 2021 Date of transfer to [facility]: 1:25 AM on May 25, 2021 Primary Diagnosis: Status post fall with resultant large left knee hematoma Secondary Diagnosis: Medical noncompliance as witnessed by patient sustaining fall due to medical noncompliance with her oxygen with resultant weakness Atrial fibrillation Anxiety Alcohol use History of 1.5 cm right upper lobe pulmonary cyst Depression History of ovarian cancer, status post nephrectomyside unknown by patient. The patient Surjit that she is in remission and no longer requires to be monitored for this medical condition by Severe pulmonary hypertension COPD, O2 dependent 3 L Coronary artery disease Diabetes Hypertension Obesity Smoker Osteoporosis History of cholelithiasis History of vitamin D deficiency Constipation Insomnia Gout Consultations: None Condition on transfer: Fair Disposition: The patient be transferred to [facility] under care of Dr. Bullock, hospitalist. The patient will require evaluation by orthopedic surgery for likely left knee arthrocentesis and the patient will also require close monitoring of her hemoglobin given that she is on anticoagulation for her history of atrial fibrillation Upon discharge, it is recommended that the patient follow-up with her primary care physician or with provider for monitoring of her history of right upper lobe pulmonary cyst Discharge Medications: Morphine 2 mg IV every 2 hours as needed pain IV as needed Ativan per [facility] protocol Insulin lispro subcutaneously before every meal and at bedtime per sliding scale Zofran 4 mg IV every 4 hours as needed nausea/vomiting Tylenol 650 mg p.o. every 4 hours as needed mild pain END OF DOCTOR EMAMIS DISCHARGE SUMMARY
[2021-05-25 02:31] LABS: AMPHETAMINES,URINE NEGATIVE (NEGATIVE); BARBITURATES,URINE NEGATIVE (NEGATIVE); BENZODIAZEPINE,URINE NEGATIVE (NEGATIVE); MDMA (ECSTASY), URINE NEGATIVE (NEGATIVE); METHADONE,URINE POSITIVE (NEGATIVE); METHAMPHETAMINES,URINE NEGATIVE (NEGATIVE); OPIATES,URINE POSITIVE (NEGATIVE); OXYCODONE,URINE NEGATIVE (NEGATIVE); PHENCYCLIDINE,URINE NEGATIVE (NEGATIVE); TCA,URINE NEGATIVE (NEGATIVE)
[2021-05-25 03:39] VITALS: BP 142/65; PULSE 80
[2021-05-25] MEDS ORDERED: Insulin Lispro 100 Units/ML 3 ML Vial SUBCUT SCH (08:00)
== END 2021-05-25 02:30 | DRG 605 ==
LOC: DL.ED 20:21 → DL.MS 05-25 00:04
PROVIDERS: ADMIT Internal Medicine; ATTEND Internal Medicine
DX: M25.562 Pain in left knee (principal); T14.8XXA Other injury of unspecified body region, initial encounter; S80.02XA Contusion of left knee, initial encounter; I48.20 Chronic atrial fibrillation, unspecified; Z68.41 Body mass index [BMI] 40.0-44.9, adult; F41.9 Anxiety disorder, unspecified; F32.9 Major depressive disorder, single episode, unspecified; J44.9 Chronic obstructive pulmonary disease, unspecified; I25.10 Atherosclerotic heart disease of native coronary artery without angina pectoris; E11.9 Type 2 diabetes mellitus without complications; E66.9 Obesity, unspecified; F17.200 Nicotine dependence, unspecified, uncomplicated; I11.0 Hypertensive heart disease with heart failure; I50.9 Heart failure, unspecified; Z20.822 Contact with and (suspected) exposure to COVID-19; M81.0 Age-related osteoporosis without current pathological fracture; K59.00 Constipation, unspecified; G47.00 Insomnia, unspecified; M10.9 Gout, unspecified; I27.20 Pulmonary hypertension, unspecified; E55.9 Vitamin D deficiency, unspecified; J98.4 Other disorders of lung; Z99.81 Dependence on supplemental oxygen; Z91.19 Patient's noncompliance with other medical treatment and regimen; Z72.89 Other problems related to lifestyle; Z85.43 Personal history of malignant neoplasm of ovary; Z90.5 Acquired absence of kidney; M25.462 Effusion, left knee; Z79.01 Long term (current) use of anticoagulants; Z79.82 Long term (current) use of aspirin; Z79.84 Long term (current) use of oral hypoglycemic drugs; Z79.52 Long term (current) use of systemic steroids; Z79.899 Other long term (current) drug therapy; W18.30XA Fall on same level, unspecified, initial encounter
CPT/HCPCS: 36415; 70450; 72125; 72192; 73551; 73560; 73590; 80053; 80307; 85025; 85610; 86850; 86900; 86901; 93005; J1170; J2405; 51701; 80305-QW; 82550; 82947; 96374; 96375; 99285-25; J2270; U0002

== ENCOUNTER 2021-07-23 20:31 | Emergency (ER) | payer MEDICARE, OTHER ==
[2021-07-23 21:35] VITALS: BP 104/78; PULSE 112
[2021-07-23 23:03] LABS: AMPHETAMINES,URINE NEGATIVE (NEGATIVE); BARBITURATES,URINE NEGATIVE (NEGATIVE); BENZODIAZEPINE,URINE NEGATIVE (NEGATIVE); MDMA (ECSTASY), URINE NEGATIVE (NEGATIVE); METHADONE,URINE NEGATIVE (NEGATIVE); METHAMPHETAMINES,URINE NEGATIVE (NEGATIVE); OPIATES,URINE NEGATIVE (NEGATIVE); OXYCODONE,URINE NEGATIVE (NEGATIVE); PHENCYCLIDINE,URINE NEGATIVE (NEGATIVE); TCA,URINE NEGATIVE (NEGATIVE)
[2021-07-23 23:21] LABS: ANION GAP 12.2 mEq/L (7-13); CHLORIDE,CL 101 mmol/L (98-107); SODIUM,NA 142 mmol/L (136-145)
[2021-07-23] MEDS ORDERED: Magnesium Sulfate/Water 2 GM in Premix Bag 1 BAG IV ONE (23:28)
[2021-07-23] MEDS ORDERED: methylPREDNISolone Sodium Succinate 125 MG/2 ML SDV IVPUSH ONE (23:28)
[2021-07-23] MEDS ORDERED: Albuterol/Ipratropium 3.0-0.5 MG/3 ML Neb Soln NEB ONE (23:28)
--- NOTE | 2021-07-23 23:33 | EDM.PDOC ---
ED HPI GENERAL MEDICAL PROBLEM - General Chief Complaint: Respiratory Problem Stated Complaint: CHEST HIDALGO, THROAT HIDALGO Time Seen by Provider: 07/23/21 23:10 Source of Information: Reports: Patient, RN, RN Notes Reviewed History Limitations: Reports: No Limitations - History of Present Illness INITIAL COMMENTS - FREE TEXT/NARRATIVE: Nella is a 65 y/o female with a history of COPD on 2L home O2 who presents to the ED via personal vehicle with complaints of sore throat that radiates into her chest causing shortness of breath. The patient reports her symptoms began two days ago and has progressively worsened in that time. She denies fever, shaking chills, palpitations, dyspepsia, nausea, or vomiting. The patient notes she was discharged from [facility] approximately two weeks ago following a five week stay for sepsis, cellulitis with abscess I&D requiring skin graft to the left medial thigh. She attest to smoking one pack of cigarettes per day as well as transient alcohol use; she denies recreational drug use. - Related Data Allergies Allergy/AdvReac Type Severity Reaction Status Date / Time No Known Allergies Allergy Verified 04/25/21 06:07 Home Meds: Home Meds Albuterol [Proventil Neb Soln] 2.5 mg NEB Q4H PRN #90 ml 01/25/15 [Rx] Metoprolol Tartrate [Lopressor] 100 mg PO BID 09/17/15 [History] Rivaroxaban [Xarelto] 20 mg PO DAILY 09/17/15 [History] Aspirin [Halfprin] 81 mg PO DAILY 06/04/19 [History] DULoxetine [Cymbalta] 30 mg PO DAILY 06/04/19 [History] Albuterol Sulfate [Proair Hfa] 2 puff IH Q4H PRN 04/25/21 [History] Cholecalciferol (Vitamin D3) [Vitamin D3] 25 mcg PO DAILY 04/25/21 [History] Diltiazem [Dilacor XR] 240 mg PO DAILY 04/25/21 [History] Furosemide 60 mg PO BID 04/25/21 [History] Mometasone Furoate [Asmanex] 1 puff IH BID 04/25/21 [History] Potassium Chloride [Klor-Con M20] 20 meq PO BID 04/25/21 [History] Umeclidinium Brm/Vilanterol Tr [Anoro Ellipta 62.5-25 MCG] 1 puff IH DAILY 04/25/21 [History] metFORMIN [Glucophage] 500 mg PO BIDMEALS 04/25/21 [History] Nystatin [Nystop] 1 gm TOP BID 15 Days #1 bottle 04/26/21 [Rx] Pantoprazole [ProTONIX] 40 mg PO ACBREAKFAST 15 Days #15 tab.cr 04/26/21 [Rx] predniSONE [Prednisone] 10 mg PO DAILY 1 Days #1 tablet 04/26/21 [Rx] Past Medical History HEENT History: Reports: Epistaxis, Other (See Below) Other HEENT History: frequent drainage from ears Cardiovascular History: Reports: Afib, Heart Failure, Hypertension, SOB on Exertion Respiratory History: Reports: Bronchitis, Recurrent, COPD 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 Ovary removal Neurological History: Reports: None Psychiatric History: Reports: Addiction, Anxiety Endocrine/Metabolic History: Reports: Diabetes, Type II, Obesity/BMI 30+ Dermatologic History: Reports: None - Infectious Disease History Infectious Disease History: Reports: None - Past Surgical History GI Surgical History: Reports: Other (See Below) Other GI Surgeries/Procedures: gastric bypass Social & Family History - Family History Family Medical History: Unobtainable - Tobacco Use Tobacco Use Status *Q: Current Every Day Tobacco User Years of Tobacco use: 50 Packs/Tins Daily: 1 - Caffeine Use Caffeine Use: Reports: Coffee - Recreational Drug Use Recreational Drug Use: No - Living Situation & Occupation Living situation: Reports: Single, with Family Occupation: Unemployed ED ROS GENERAL - Review of Systems Review Of Systems: Comprehensive ROS is negative, except as noted in HPI. ED EXAM, GENERAL - Physical Exam Exam: See Below Exam Limited By: No Limitations General Appearance: Alert, No Apparent Distress, Obese Eye Exam: Bilateral Eye: EOMI, Normal Inspection, PERRL (3mm) Ears: Normal External Exam, Normal Canal, Hearing Grossly Normal, Normal TMs Nose: Normal Inspection, Normal Mucosa, No Blood Throat/Mouth: Normal Inspection, Normal Oropharynx, Normal Voice, No Airway Compromise Head: Atraumatic, Normocephalic Neck: Normal Inspection, Supple, Non-Tender, Full Range of Motion, Lymphadenopathy (L) (Anterior cervical chain). No: Lymphadenopathy (R) Respiratory/Chest: No Accessory Muscle Use, Chest Non-Tender, Wheezing (Expiratory diffuse), Prolonged Expiration. No: Crackles, Rales, Rhonchi, Stridor Cardiovascular: Normal Peripheral Pulses, No Gallop, No JVD, No Murmur, No Rub, Irregularly Irregular. No: No Edema Peripheral Pulses: 2+: Radial (L), Radial (R) GI/Abdominal: Normal Bowel Sounds, Soft, Non-Tender, No Distention, No Abnormal Bruit, No Mass, Pelvis Stable (Female) Exam: Deferred Rectal (Female) Exam: Deferred Back Exam: Normal Inspection, Full Range of Motion Extremities: Normal Range of Motion, Normal Capillary Refill, Pedal Edema (+1 non-pitting ) Neurological: Alert, Oriented, CN II-XII Intact, Normal Cognition, Normal Gait, Normal Reflexes, No Motor/Sensory Deficits Psychiatric: Normal Affect, Normal Mood Skin Exam: Warm, Dry, Intact, Normal Color, No Rash. No: Cyanosis, Jaundice, Mottled, Pallor Course - Vital Signs Last Recorded V/S: Last Vital Signs Temp 98.1 F 07/23/21 20:55 Pulse 112 H 07/23/21 20:55 Resp 20 07/23/21 20:55 BP 104/78 07/23/21 20:55 Pulse Ox 92 L 07/23/21 20:55 - Orders/Labs/Meds Labs: Laboratory Tests 07/23/21 07/23/21 07/23/21 Range/Units 22:44 22:44 22:52 WBC 6.4 (5.0-10.0) 10^3/uL RBC 3.92 L (4.2-5.4) 10^6/uL Hgb 9.2 L D (12.0-16.0) g/dL Hct 30.7 L (37.0-47.0) % MCV 78.3 L D (80-100) fL MCH 23.5 L (27.0-34.0) pg MCHC 30.0 L (33.0-35.0) g/dL Plt Count 268 D (150-450) 10^3/uL Neut % (Auto) 61.8 (42.2-75.2) % Lymph % (Auto) 21.6 (20.5-50.1) % [place] % (Auto) 11.7 H (2-8) % Eos % (Auto) 4.4 H (1.0-3.0) % Baso % (Auto) 0.5 (0.0-1.0) % Sodium (136-145) mmol/L Potassium (3.5-5.1) mmol/L Chloride (98-107) mmol/L Carbon Dioxide (21-32) mmol/L Anion Gap (7-13) mEq/L BUN (7-18) mg/dL Creatinine (0.55-1.02) mg/dL Est Cr Clr Drug Dosing mL/min Estimated GFR (MDRD) BUN/Creatinine Ratio (No establ ref range) Glucose (70-99) mg/dL Calcium (8.5-10.1) mg/dL Magnesium (1.8-2.4) mg/dL Total Bilirubin (0.2-1.0) mg/dL AST (15-37) U/L ALT (14-59) U/L Alkaline Phosphatase (46-116) U/L Troponin I High Sens (<=51) pg/mL C-Reactive Protein (0.0-0.9) mg/dL B-Natriuretic Peptide (0-100) pg/ml Total Protein (6.4-8.2) g/dL Albumin (3.4-5.0) g/dL Globulin Albumin/Globulin Ratio Urine Color Yellow (YELLOW) Urine Appearance Clear (CLEAR) Urine pH 5.5 (5.0-9.0) Ur Specific [place] >= 1.030 (1.005-1.030) Urine Protein Negative (NEGATIVE) Urine Glucose (UA) Negative (NEGATIVE) Urine Ketones 15 H (NEGATIVE) Urine Occult Blood Negative (NEGATIVE) Urine Nitrite Negative (NEGATIVE) Urine Bilirubin Small H (NEGATIVE) Urine Urobilinogen 0.2 (0.2-1.0) mg/dL Ur Leukocyte Esterase Negative (NEGATIVE) Urine Opiates Screen Negative (NEGATIVE) Ur Oxycodone Screen Negative (NEGATIVE) Urine Methadone Screen Negative (NEGATIVE) Ur Barbiturates Screen Negative (NEGATIVE) U Tricyclic Antidepress Negative (NEGATIVE) Ur Phencyclidine Scrn Negative (NEGATIVE) Ur Amphetamine Screen Negative (NEGATIVE) U Methamphetamines Scrn Negative (NEGATIVE) Urine MDMA Screen Negative (NEGATIVE) U Benzodiazepines Scrn Negative (NEGATIVE) Urine Cocaine Screen Negative (NEGATIVE) U Marijuana (THC) Screen Negative (NEGATIVE) 07/23/21 Range/Units 22:52 WBC (5.0-10.0) 10^3/uL RBC (4.2-5.4) 10^6/uL Hgb (12.0-16.0) g/dL Hct (37.0-47.0) % MCV (80-100) fL MCH (27.0-34.0) pg MCHC (33.0-35.0) g/dL Plt Count (150-450) 10^3/uL Neut % (Auto) (42.2-75.2) % Lymph % (Auto) (20.5-50.1) % [place] % (Auto) (2-8) % Eos % (Auto) (1.0-3.0) % Baso % (Auto) (0.0-1.0) % Sodium 142 (136-145) mmol/L Potassium 3.2 L (3.5-5.1) mmol/L Chloride 101 (98-107) mmol/L Carbon Dioxide 32 (21-32) mmol/L Anion Gap 12.2 (7-13) mEq/L BUN 10 (7-18) mg/dL Creatinine 0.88 (0.55-1.02) mg/dL Est Cr Clr Drug Dosing 53.57 mL/min Estimated GFR (MDRD) > 60 BUN/Creatinine Ratio 11.4 (No establ ref range) Glucose 147 H (70-99) mg/dL Calcium 8.7 (8.5-10.1) mg/dL Magnesium 1.4 L (1.8-2.4) mg/dL Total Bilirubin 0.2 (0.2-1.0) mg/dL AST 10 L (15-37) U/L ALT 15 (14-59) U/L Alkaline Phosphatase 70 (46-116) U/L Troponin I High Sens 7 (<=51) pg/mL C-Reactive Protein 1.0 H (0.0-0.9) mg/dL B-Natriuretic Peptide 353 H (0-100) pg/ml Total Protein 7.1 (6.4-8.2) g/dL Albumin 3.2 L (3.4-5.0) g/dL Globulin 3.9 Albumin/Globulin Ratio 0.82 Urine Color (YELLOW) Urine Appearance (CLEAR) Urine pH (5.0-9.0) Ur Specific [place] (1.005-1.030) Urine Protein (NEGATIVE) Urine Glucose (UA) (NEGATIVE) Urine Ketones (NEGATIVE) Urine Occult Blood (NEGATIVE) Urine Nitrite (NEGATIVE) Urine Bilirubin (NEGATIVE) Urine Urobilinogen (0.2-1.0) mg/dL Ur Leukocyte Esterase (NEGATIVE) Urine Opiates Screen (NEGATIVE) Ur Oxycodone Screen (NEGATIVE) Urine Methadone Screen (NEGATIVE) Ur Barbiturates Screen (NEGATIVE) U Tricyclic Antidepress (NEGATIVE) Ur Phencyclidine Scrn (NEGATIVE) Ur Amphetamine Screen (NEGATIVE) U Methamphetamines Scrn (NEGATIVE) Urine MDMA Screen (NEGATIVE) U Benzodiazepines Scrn (NEGATIVE) Urine Cocaine Screen (NEGATIVE) U Marijuana (THC) Screen (NEGATIVE) Meds: Medications Discontinued Medications Generic Name Dose Route Start Last Admin Trade Name Freq PRN Reason Stop Dose Admin Albuterol/Ipratropium 3 ml 07/23/21 23:28 07/23/21 23:41 Albuterol/Ipratropium 3.0-0.5 Mg/3 Ml Neb Soln NEB 07/23/21 23:29 3 ml ONETIME ONE Administration Magnesium Sulfate 2 gm/ Premix 50 mls @ 25 mls/hr 07/23/21 23:28 07/23/21 23:41 IV 07/24/21 01:27 25 mls/hr ONETIME ONE Administration Methylprednisolone Sodium Succinate 125 mg 07/23/21 23:28 07/23/21 23:41 Methylprednisolone Sodium Succinate 125 Mg/2 Ml Sdv IVPUSH 07/23/21 23:29 125 mg ONETIME ONE Administration - Radiology Interpretation Free Text/Narrative:: [facility] Final Radiology Report Call: [phone] assistance Online chat: [email or web address] Name: NELLA DOBBS Age: 65Years F Date: 07/23/2021 SSN: -- : [id number] Study: CR CHEST 1V FRONTAL Requesting Physician: Elena Rodríguez Images: 1 Addl Studies: Provided Clinical History: Chest pain Contrast: Contrast Medium: Contrast Amount: Contrast Method: CONFIDENTIALITY STATEMENT This report is intended only for use by the referring physician, and only in accordance with law. If you received this in error, call [phone]. Page 1 of 1 PROCEDURE INFORMATION: Exam: XR Chest Exam date and time: 07/23/2021 10:48 PM Age: 65 years old Clinical indication: Pain; Left-sided; Additional info: Chest pain TECHNIQUE: Imaging protocol: XR of the chest. Views: 1 view. COMPARISON: CR Chest 1V Frontal 04/25/2021 3:39 AM FINDINGS: Lungs: Unremarkable. No consolidation. Pleural spaces: Unremarkable. No pleural effusion. No pneumothorax. Heart/Mediastinum: Unremarkable. No cardiomegaly. Bones/joints: Unremarkable. IMPRESSION: No acute findings. Thank you for allowing us to participate in the care of your patient. Dictated and Authenticated by: Otoniel Gomez MD 07/23/2021 11:55 PM Central Time ([place] & [place]) - Re-Assessments/Exams Free Text/Narrative Re-Assessment/Exam: 07/23/21 Solu-Medrol 125mg IVP and DuoNeb administered while labs pending. CXR obtained. Findings of examination, imaging, and lab work reviewed with patient. Will treat hypomagnesemia with Mag Sulfate 2gm IVPB. Will treat COPD exacerbation with prednisone burst. Supportive cares for discussed. Patient instructed to follow up with PCP regarding today's visit. Red flag signs and symptoms which would warrant immediate reevaluation reviewed. Patient verbalized understanding and agreement with the plan of care. Departure - Departure Time of Disposition: 01:59 Disposition: Home, Self-Care 01 Condition: Fair Clinical Impression: COPD with acute exacerbation - Discharge Information *PRESCRIPTION DRUG MONITORING PROGRAM REVIEWED*: Not Applicable *COPY OF PRESCRIPTION DRUG MONITORING REPORT IN PATIENT MARISA: Not Applicable Instructions: Chronic Obstructive Pulmonary Disease Referrals: PCP,None [Primary Care Provider] - Forms: ED Department Discharge Additional Instructions: Rx: prednisone 1.) Follow up with your primary care provider regarding today's visit. 2.) Follow up with your sports trainer regarding today's visit. 3.) Continue on your previously prescribed medications. 4.) Return to the emergency department with any persistent or worsening symptoms despite medications. Sepsis Event Note (ED) - Evaluation Sepsis Screening Result: No Definite Risk
--- NOTE | 2021-07-23 23:55 | CR ---
PROCEDURE INFORMATION: Exam: XR Chest Exam date and time: 07/23/2021 10:48 PM Age: 65 years old Clinical indication: Pain; Left-sided; Additional info: Chest pain TECHNIQUE: Imaging protocol: XR of the chest. Views: 1 view. COMPARISON: CR Chest 1V Frontal 04/25/2021 3:39 AM FINDINGS: Lungs: Unremarkable. No consolidation. Pleural spaces: Unremarkable. No pleural effusion. No pneumothorax. Heart/Mediastinum: Unremarkable. No cardiomegaly. Bones/joints: Unremarkable. IMPRESSION: No acute findings.
== END 2021-07-24 02:13 | disposition home or self-care (01) ==
LOC: DL.ED 20:31
DX: J44.1 Chronic obstructive pulmonary disease with (acute) exacerbation (principal); I48.91 Unspecified atrial fibrillation; I11.0 Hypertensive heart disease with heart failure; I50.9 Heart failure, unspecified; J44.9 Chronic obstructive pulmonary disease, unspecified; E11.9 Type 2 diabetes mellitus without complications; E66.9 Obesity, unspecified; R60.0 Localized edema; Z68.41 Body mass index [BMI] 40.0-44.9, adult; Z79.01 Long term (current) use of anticoagulants; Z79.82 Long term (current) use of aspirin; Z72.0 Tobacco use
CPT/HCPCS: 36415; 71045; 80053; 80305-QW; 81003; 83735; 83880; 84484; 85025; 86140; 96365; 96366; 96375; 99285-25; J2930; J3475; J7620-GY

== ENCOUNTER 2022-01-04 11:35 | Emergency (ER) | payer MEDICARE, OTHER ==
[2022-01-04 12:11] VITALS: BP 156/66; PULSE 95
== END 2022-01-04 14:20 | disposition home or self-care (01) ==
LOC: DL.ED 11:35
DX: S80.12XA Contusion of left lower leg, initial encounter (principal); Z72.0 Tobacco use; W18.09XA Striking against other object with subsequent fall, initial encounter
CPT/HCPCS: 93971; 99283-25

== ENCOUNTER 2024-01-15 19:31 | Emergency (ER) | payer MEDICARE ==
[2024-01-15] MEDS: Albuterol/Ipratropium 3.0-0.5 MG/3 ML Neb Soln NEB ONE (19:53)
[2024-01-15 20:14] LABS: BASOPHILS PERCENT AUTO 0.3 % (0.0-1.0); EOSINOPHILS PERCENT AUTO 0.3 % (1.0-3.0); HEMOGLOBIN 12.2 g/dL (12.0-16.0); LYMPHOCYTES PERCENT AUTO 6.3 % (20.5-50.1); MEAN CORPUSCULAR HEMOGLOBIN 30.6 pg (27.0-34.0); MEAN CORPUSCULAR HGB CONC 31.3 g/dL (33.0-35.0); MEAN CORPUSCULAR VOLUME 97.7 fL (80-100); MONOCYTES PERCENT AUTO 4.6 % (2-8); NEUTROPHILS PERCENT AUTO 88.5 % (42.2-75.2); PLATELET COUNT,PLT 229 10^3/uL (150-450); RED BLOOD CELL COUNT 3.99 10^6/uL (4.2-5.4); WHITE BLOOD CELL COUNT,WBC 11.6 10^3/uL (5.0-10.0)
[2024-01-15] MEDS: Azithromycin 500 MG in Sodium Chloride 0.9% 250 ML IV ONE (20:29)
[2024-01-15] MEDS: cefTRIAXone 2 GM Vial IV ONE (20:29)
[2024-01-15] MEDS: methylPREDNISolone Sodium Succinate 40 MG/1 ML SDV IVPUSH ONE (20:29)
[2024-01-15 20:34] LABS: ALANINE AMINOTRANSFERASE,ALT 11 U/L (14-59); ALKALINE PHOSPHATASE 135 U/L (46-116); ANION GAP 13.9 mEq/L (7-13); ASPARTATE AMNIOTRANSFERASE,AST 12 U/L (15-37); BILIRUBIN TOTAL 0.4 mg/dL (0.2-1.0); BLOOD UREA NITROGEN,BUN 11 mg/dL (7-18); BUN/CREATININE RATIO 11.7 (No establ ref range); CALCIUM 9.3 mg/dL (8.5-10.1); CARBON DIOXIDE,CO2 33 mmol/L (21-32); CHLORIDE,CL 95 mmol/L (98-107); CREATININE 0.94 mg/dL (0.55-1.02); GLUCOSE RANDOM 175 mg/dL (70-99); POTASSIUM,K 3.9 mmol/L (3.5-5.1); PROTEIN TOTAL,TP 7.4 g/dL (6.4-8.2); SODIUM,NA 138 mmol/L (136-145)
[2024-01-15 20:35] LABS: A/G RATIO 0.68; ESTIMATED GFR 65 mL/min (>=60)
[2024-01-15 20:36] LABS: LACTIC ACID 4.6 mmol/L (0.4-2.0)
[2024-01-15 20:39] LABS: INR 0.9 (0.9-1.2); PROTHROMBIN TIME 9.7 SEC (9.0-12.0)
[2024-01-15 20:45] LABS: B-TYPE NATRIURETIC PEPTIDE,BNP 375 pg/ml (0-100)
[2024-01-15] MEDS: Lactated Ringers 1,000 ML IV ONE (21:00)
[2024-01-15] MEDS: Sodium Chloride 0.9% 10 ML Syringe FLUSH PRN (21:01)
[2024-01-15] MEDS ORDERED: Acetaminophen 325 MG Tab PO ONE (21:19)
[2024-01-15 21:22] VITALS: BP 153/60; PULSE 133
[2024-01-15 21:23] LABS: APPEARANCE,URINE CLEAR (CLEAR); BILIRUBIN,URINE NEGATIVE (NEGATIVE); COLOR,URINE YELLOW (YELLOW); GLUCOSE,URINE NEGATIVE (NEGATIVE); KETONES,URINE NEGATIVE (NEGATIVE); LEUKOCYTE ESTERASE,URINE NEGATIVE (NEGATIVE); NITRITE,URINE NEGATIVE (NEGATIVE); OCCULT BLOOD,URINE TRACE-LYSED (NEGATIVE); PH,URINE 5.5 (5.0-9.0); PROTEIN,URINE TRACE (NEGATIVE); UROBILINOGEN,URINE 0.2 mg/dL (0.2-1.0)
[2024-01-15 21:30] LABS: O2 DELIVERY DEVICE OM
[2024-01-15 21:34] LABS: PCO2 ARTERIAL 74 mmHg (35-48); PH,ARTERIAL 7.25 pH (7.35-7.45); PO2 ARTERIAL 155 mmHg (83-108)
[2024-01-15 21:35] LABS: BASE EXCESS ARTERIAL 5 mmol/L ((-2)-(+3)); BICARBONATE,ARTERIAL 32 mmol/L (21-28); O2 SATURATION ARTERIAL 99 % (94-98)
[2024-01-15 21:41] LABS: AMORPHOUS SEDIMENT,URINE FEW /HPF (NOT SEEN); BACTERIA,URINE FEW /HPF (0-FEW/HPF); EPITHELIAL CELLS,URINE MODERATE /HPF (NOT SEEN); MUCUS,URINE FEW /LPF (NOT SEEN); RBC,URINE 0-5 /HPF (0-5); WBC,URINE 0-5 /HPF (0-5/HPF)
== END 2024-01-15 22:04 | disposition other institution (70) ==
LOC: DL.ED 19:31
DX: J44.1 Chronic obstructive pulmonary disease with (acute) exacerbation (principal); R09.02 Hypoxemia; I11.0 Hypertensive heart disease with heart failure; I50.9 Heart failure, unspecified; K21.9 Gastro-esophageal reflux disease without esophagitis; E11.9 Type 2 diabetes mellitus without complications; I48.91 Unspecified atrial fibrillation; E66.9 Obesity, unspecified; F17.210 Nicotine dependence, cigarettes, uncomplicated; Z88.8 Allergy status to other drugs, medicaments and biological substances; Z79.51 Long term (current) use of inhaled steroids; Z79.84 Long term (current) use of oral hypoglycemic drugs; Z79.01 Long term (current) use of anticoagulants
CPT/HCPCS: 36415; 36600; 71045; 80053; 81001; 82803; 83605; 83880; 84145; 84484; 85025; 85610; 87040; 93005; 96365; 96366; 96375; 99285; J0456; J0696; J2920; J7050; J7120; J3490; J7620-GY